=== PATIENT | male | born 1940 | race Caucasian/White ===

== ENCOUNTER → 2016-11-14 | Outpatient (CLI) | payer OTHER, MEDICARE ==
[~2016-11-14] MED LIST: ACET-1138 PO; ALBU1AER9 INH; ANSHCCR RE; ASPI81TA28 PO; ATOR-24 PO; CLB200 PO; ISOS30TA3 PO; LISI-461 PO; LISI-725 PO; METO1TAB69 PO; MULT-610 PO; NTRGSL/4 UT; ONDA8TAB6 PO; REGADENOSON 0.4 MG/5 ML SYR ONE; RXC5 PO; SNK PO; TAMS0.4C38 PO; TRAM-10 PO; TRMO2580 TOP
--- NOTE | 2016-11-15 09:28 | MYOCARDIAL PERFUSION SCAN ---
DATE OF PROCEDURE: 11/14/2016. TIME: 9:06 a.m. ORDERING PHYSICIAN: Dr. Schmid. PRIMARY CARE PHYSICIAN: Dr. Esquivel. PROCEDURE: 1. Myocardial perfusion study performed in multiple views/images. 2. Lexiscan pharmacologic stress ECG. INDICATIONS: 1. Cardiomyopathy. 2. CAD. 3. Dyspnea with exertion. CONSENT: Informed written consent was obtained. ELECTROCARDIOGRAM AND VITALS: Baseline ECG demonstrated sinus bradycardia at 59 beats per minute. Anterolateral ST depression and T-wave inversion. Lexiscan ECG demonstrated no significant ST changes. No arrhythmia. There were occasional PVCs. No chest pain reported. Resting blood pressure was 147/80 mmHg. This was also the maximum blood pressure. Maximum heart rate was 82 beats per minute representing 56% maximum predicted heart rate. PROCEDURAL DETAILS: For the stress portion of the study, Lexiscan 0.4 mg was intravenously administered over 10-15 seconds followed by saline flush. This was followed by 34 mCi of technetium-99m Cardiolite injected intravenously at 11:26 a.m. on 11/14/2016. Thirty minutes following the injection, imaging of the heart was performed in multiple projections. For the rest portion of the study 10.8 mCi of technetium-99m Cardiolite was injected intravenously at 9:45 a.m. On the same day 1 hour following the injection, imaging of the heart was performed in the same projections. FINDINGS: Rotating raw imaging demonstrated motion artifact, worse so in the rest images. Heart appeared dilated. There was no significant lung uptake. Myocardial perfusion demonstrated a large area of moderately reduced uptake in the anterior, anterolateral, and lateral bah from base to apex which appeared to be fixed in post-stress and rest imaging. There was a large area of moderately reduced uptake at the apex which was predominantly fixed with mild reversibility, suggesting mild demetrio-infarct ischemia. Visually, LV systolic function appeared to be moderately reduced. Calculated ejection fraction did not appear accurate as it was having difficulty recognizing the myocardial bah. WALL MOTION: Akinesis of the apex, distal septum, and distal inferior wall. There appeared to be dyskinesis of the mid septum. Otherwise, mild global hypokinesis. IMPRESSION: 1. Abnormal myocardial perfusion suggesting large left anterior descending infarct with only mild periinfarct ischemia at the apex. 2. No significant ischemic changes suggested. 3. Moderately reduced left ventricular systolic function visually. 4. Akinesis of the apex, distal septum, and distal inferior wall with dyskinesis of the mid septum. 5. No chest pain reported. 6. No arrhythmia. 7. Nondiagnostic Lexiscan ECG.
== END | disposition home or self-care (01) ==
LOC: C.NUCL 09:21
PROVIDERS: ATTEND Internal Medicine Cardiovascular Disease
DX: I25.10 Atherosclerotic heart disease of native coronary artery without angina pectoris (principal); I42.9 Cardiomyopathy, unspecified; R06.09 Other forms of dyspnea

== ENCOUNTER → 2016-11-23 | Outpatient (CLI) | payer OTHER, MEDICARE ==
[~2016-11-23] MED LIST changes: -REGADENOSON 0.4 MG/5 ML SYR ONE
[2016-11-23 13:46] LABS: BLOOD UREA NITROGEN 27 mg/dl (7-18); BUN/CREATININE RATIO 22.2 (10-20); CALCIUM 8.4 mg/dl (8.5-10.1); CARBON DIOXIDE 26 mmol/L (21-32); CHLORIDE 109 mmol/L (98-107); GLUCOSE 123 mg/dl (70-99); POTASSIUM 4.5 mmol/L (3.5-5.1); SODIUM 143 mmol/L (136-145)
== END | disposition home or self-care (01) ==
LOC: C.LABMFLN 07:32
PROVIDERS: ATTEND Internal Medicine Cardiovascular Disease
DX: I42.9 Cardiomyopathy, unspecified (principal)

== ENCOUNTER 2017-02-19 10:48 | Inpatient (IN) | payer OTHER, MEDICARE ==
[2017-02-01 13:03] VITALS: BMI 26.0
--- NOTE | 2017-02-01 13:48 | PAT Medication Instructions ---
Service Date Feb 01, 2017. Current Home Medication List Albuterol (Proair Hfa), 2 PUFFS INH Q 4 HRS PRN for NEEDED Aspirin (Aspirin Ec), 81 MG PO QAM Atorvastatin (Lipitor), 40 MG PO HS Hydrocortisone (Proctosol Hc), 2.5 % RE DAILY PRN for NEEDED. Lisinopril (Zestril), 20 MG PO QAM Lisinopril (Zestril), 10 MG PO QPM Metoprolol Succ (Toprol Xl) (Toprol-Xl ), 100 MG PO QAM Multiple Vitamins W/ Minerals (Centrum Adults), 1 TAB PO QAM Nitroglycerin (Nitrostat), 0.4 MG UT PRN PRN for FOR CHEST PAIN. Tamsulosin Hcl (Flomax), 0.4 MG PO DAILY PRN for 1/2 HR AFTER EVENING MEAL. Tramadol (Ultram), 50 MG PO Q4H PRN for Pain Triamcinolone Acetonide (Topic (Triamcinolone Acet 0.025%), 1 APPLN TOP BID PRN for prn Medication Instructions For Your Scheduled Surgery - Continue as directed: Nitroglycerin (Nitrostat), 0.4 MG UT PRN PRN for FOR CHEST PAIN. - Hold the following medications 24 hours prior to surgery: Lisinopril (Zestril), 10 MG PO QPM Lisinopril (Zestril), 20 MG PO QAM Hydrocortisone (Proctosol Hc), 2.5 % RE DAILY PRN for NEEDED. Triamcinolone Acetonide (Topic (Triamcinolone Acet 0.025%), 1 APPLN TOP BID PRN for prn - Hold the following medications the morning of surgery: Multiple Vitamins W/ Minerals (Centrum Adults), 1 TAB PO QAM - Take the following medications the morning of surgery with a sip of water OTHERWISE NOTHING TO EAT OR DRINK AFTER MIDNIGHT: Aspirin (Aspirin Ec), 81 MG PO QAM Metoprolol Succ (Toprol Xl) (Toprol-Xl ), 100 MG PO QAM Tramadol (Ultram), 50 MG PO Q4H PRN for Pain (may take if needed up to 4 hours prior to surgery) Albuterol (Proair Hfa), 2 PUFFS INH Q 4 HRS PRN for NEEDED (use if needed; BRING TO HOSPITAL) - Take the following medications as scheduled the night before surgery: Atorvastatin (Lipitor), 40 MG PO HS Tramadol (Ultram), 50 MG PO Q4H PRN for Pain Albuterol (Proair Hfa), 2 PUFFS INH Q 4 HRS PRN for NEEDED Tamsulosin Hcl (Flomax), 0.4 MG PO DAILY PRN for 1/2 HR AFTER EVENING MEAL. If you have any questions please call us at [phone] or [phone] or [phone]
--- NOTE | 2017-02-01 14:08 | DIAGNOSTIC IMAGING REPORT ---
CHEST PREADMISSION(PA/LAT) CLINICAL HISTORY: PAT preoperative evaluation COMPARISON STUDY: No previous studies for comparison. FINDINGS: Prior median sternotomy. Lungs are clear. Diaphragms smooth. IMPRESSION: No acute process. Electronically signed by: Kendall Romero M.D. 02/01/2017 2:05 PM Dictated Date/Time: 02/01/2017 2:05 PM
[2017-02-01 14:16] LABS: BASO % 0.3 %; BASO ABS # 0.02 K/uL (0-0.2); COMPLETE YES; EOS % 4.9 %; HEMATOCRIT 40.6 % (42-52); IG% 0.1 %; LYMPH % 33.3 %; LYMPH ABS # 2.24 K/uL (1.2-3.4); MEAN CELL VOLUME 93.8 fL (80-100); MEAN CORPUSCULAR HEMOGLOBIN 31.2 pg (25-34); MEAN CORPUSCULAR HGB CONC 33.3 g/dl (32-36); MEAN PLATELET VOLUME 9.8 fL (7.4-10.4); MONO % 8.2 %; NEUT % 53.2 %; PLATELET COUNT 204 K/uL (130-400); RED BLOOD COUNT 4.33 M/uL (4.7-6.1); WHITE BLOOD COUNT 6.72 K/uL (4.8-10.8)
[2017-02-01 14:23] LABS: INR 1.1 (0.9-1.1); PROTHROMBIN TIME (PATIENT) 11.5 SECONDS (9.0-12.0)
[2017-02-01 14:59] LABS: URINE APPEARANCE CLEAR (CLEAR); URINE BILIRUBIN NEG (NEG); URINE COLOR YELLOW; URINE NITRITE NEG (NEG); UROBILINOGEN NEG (NEG); ZZUR CULT IF INDIC CLEAN CATCH NO
[2017-02-01 15:03] LABS: MANUAL MICROSCOPIC REQUIRED? NO; REVIEW REQ? NO
[2017-02-01 16:24] LABS: BUN/CREATININE RATIO 22.4 (10-20); POTASSIUM 4.3 mmol/L (3.5-5.1)
[2017-02-01 16:40] LABS: CALCIUM 8.5 mg/dl (8.5-10.1)
[2017-02-19] VITALS (8 sets, daily range): BP systolic 104–147; BP diastolic 47–81; PULSE 55–67; TEMP 36.3–36.6; O2SAT 98–100; Ht 175.3 cm; Wt 81.3 kg
[~2017-02-19] VITALS: Ht 175.3 cm; Wt 81.3 kg
[2017-02-19] MEDS: TRANEXAMIC ACID INJ 1,000 MG in SODIUM CHLORIDE 0.9% 100ML 100 ML IV SCH ×2 (06:30→12:58)
[~2017-02-19 10:48] MED LIST changes: -ACET-1138 PO; +ACETAMINOPHEN 500 MG TAB PO SCH; +ATROPINE SULFATE 0.1 MG/ML 5ML SYR IV PRN; +BUPIVACAINE 0.5 % 5 MG/1 ML PF 10ML VIAL ONE; +CEFAZOLIN 2000 MG/60 ML D5W 60 ML IV SCH; -CLB200 PO; +CeleBREX 200 MG CAP PO SCH; +DEXAMETHASONE 4 MG TAB PO SCH; +EpHEDrine SULFATE INJ 50 MG/ML AMP IV PRN; +FAMOTIDINE 20 MG TAB PO SCH; +FENTANYL CITRATE INJ 50 MCG/1 ML 2 ML VIAL IV PRN; +GABAPENTIN 300 MG CAP PO SCH; -ISOS30TA3 PO; +LACTATED RINGER'S 1000ML 1,000 ML IV SCH; +LACTATED RINGER'S 1000ML 500 ML IV ONE; +LACTATED RINGER'S 1000ML IV SCH; +METO100T44 PO; -METO1TAB69 PO; +METOCLOPRAMIDE HCL 10 MG TAB PO SCH; -ONDA8TAB6 PO; +ONDANSETRON INJ 2 MG/ML 2 ML VIAL IV PRN; +OXYCODONE HCL 10 MG TABCR (OXYCONTIN) PO SCH; +POLYMYXIN B SULFATE 100,000 UNITS in NSS 100ML IR SCH; -RXC5 PO; -SNK PO; +VANCOMYCIN INJ 400 MG in NSS 100ML IR SCH
--- NOTE | 2017-02-19 11:50 | History and Physical ---
History & Physical Date February 19, 2017. Chief Complaint LEFT HIP PAIN History of Present Illness The patient is a 76 year old male with complaints of Past Medical/Surgical History Patient has history of left hip pain x several months. He rates his pain a 8/10 at worst. He has pain with daily activities. He has limited standing and walking tolerance. Pain is worse with weight bearing. Patient has failed conservative treatment and is scheduled for direct anterior, left NOEL. Additional History Hepatic Disease: No Endocrine Disorder: No Kidney Disease: No Hypertension: No Heart Disease: Yes (history of [place] 2013) Bleeding Tendencies: No Infectious Diseases: No Allergies Coded Allergies: No Known Allergies (Unverified , 02/19/17) Home Medications Scheduled Aspirin (Aspirin Ec), 81 MG PO QAM Atorvastatin (Lipitor), 40 MG PO HS Lisinopril (Zestril), 20 MG PO QAM Lisinopril (Zestril), 10 MG PO QPM Metoprolol Succ (Toprol Xl) (Toprol-Xl ), 100 MG PO QAM Multiple Vitamins W/ Minerals (Centrum Adults), 1 TAB PO QAM Scheduled PRN Hydrocortisone (Proctosol Hc), 2.5 % RE DAILY PRN for NEEDED. Nitroglycerin (Nitrostat), 0.4 MG UT PRN PRN for FOR CHEST PAIN. Tamsulosin Hcl (Flomax), 0.4 MG PO DAILY PRN for 1/2 HR AFTER EVENING MEAL. Tramadol (Ultram), 50 MG PO Q4H PRN for Pain Triamcinolone Acetonide (Topic (Triamcinolone Acet 0.025%), 1 APPLN TOP BID PRN for prn Physical Examination Skin: warm/dry, no rash Eyes: normal inspection, EOMI, sclerae normal ENT: normal ENT inspection, pharynx normal Head: normocephalic, atraumatic Neck: supple, no adenopathy, trachea midline Respiratory/Chest: lungs clear, normal breath sounds, no respiratory distress Cardiovascular: regular rate, rhythm, no edema, no murmur Abdomen / GI: normal bowel sounds, non tender Back: normal inspection Extremities: normal inspection, + pertinent finding (ROM PAINFUL AND DECREASED. ANTALGIC GAIT. ) Neurologic/Psych: no motor/sensory deficits, alert, normal reflexes, oriented x 3 Diagnosis DJD LEFT HIP Plan of Treatment PATIENT WILL BE ADMITTED FOR A DIRECT ANTERIOR LEFT TOTAL HIP ARTHROPLASTY. WE WILL PLAN ON ASA FOR DVT PROPHYLAXIS.
[2017-02-19] MEDS ORDERED: LIDOCAINE HCL 2% 2 ML VIAL (20MG/ML) ONE (13:09)
[2017-02-19] MEDS ORDERED: PROPOFOL IV EMULSION 10 MG/ML 20 ML VIAL IV ONE (13:09)
[2017-02-19] MEDS ORDERED: MIDAZOLAM HCL 1 MG/ML 2ML VIAL ONE ×2 (13:10)
[2017-02-19] MEDS ORDERED: ORTHO JOINT ANESTHETIC ONE (13:48)
[2017-02-19] MEDS ORDERED: POVIDONE-IODINE OP SOLN 30 ML BTL ONE (13:48)
[2017-02-19] MEDS ORDERED: BACITRACIN 50000 UNIT VIAL ONE (13:49)
[2017-02-19] MEDS: ROPIVACAINE 5MG/ML 30 ML 150 MG, BUPIVACAINE/EPINEPHR 0.5% MPF 30 ML, KETOROLAC TROMETH... INFIL SCH ×14 (15:20→15:38)
[2017-02-19] MEDS ORDERED: EpHEDrine SULFATE 50MG/5ML SYR ONE (15:27)
--- NOTE | 2017-02-19 15:44 | DIAGNOSTIC IMAGING REPORT ---
LEFT HIP UNILATERAL 1 VIEW CLINICAL HISTORY: Left hip prosthesis. COMPARISON STUDY: None. FINDINGS: Fluoroscopy time was 9 seconds. A single fluoroscopic spot image. There is a left total hip arthroplasty. The hardware appears intact. No fracture or dislocation. IMPRESSION: Fluoroscopy provided for a left total hip arthroplasty. Electronically signed by: Prieto Peñaloza M.D. 02/19/2017 3:42 PM Dictated Date/Time: 02/19/2017 3:42 PM
--- NOTE | 2017-02-19 15:50 | [facility] Post Operative Brief Note ---
Immediate Operative Summary Operative Date February 19, 2017. Pre-Operative Diagnosis Degenerative Arthritis, Left Hip Post-Operative Diagnosis Same as preoperative Procedure(s) Performed Left Total Hip Arthroplasty, Direct Anterior Approach Surgeon Dr. Beni Elizondo Mathematical Statistician Surgeon(s) Franck Manuel PA-C Estimated Blood Loss 75ML Findings DJD Specimens A.) Left Femoral Head Complication(s) None Disposition Recovery Room / PACU
[2017-02-19] MEDS ORDERED: ZOLPIDEM TARTRATE 5 MG TAB PO PRN (16:00)
[2017-02-19] MEDS ORDERED: OXYCODONE HCL IR 5 MG TAB (IMMEDIATE RELEASE) PO PRN (16:00)
[2017-02-19] MEDS ORDERED: TRAMADOL HCL 50 MG TAB PO PRN (16:00)
[2017-02-19] MEDS ORDERED: METOCLOPRAMIDE HCL INJ 5 MG/ML 2 ML VIAL IV PRN (16:00)
[2017-02-19] MEDS ORDERED: TAMSULOSIN HCL 0.4 MG CAP PO PRN (16:00)
[2017-02-19] MEDS ORDERED: MoRPHine SULFATE 2 MG/ML CARP IV PRN (16:00)
[2017-02-19] MEDS ORDERED: ALUMINUM/MAGNESIUM/SIMETH (MAALOX MAX) 30 ML UDC PO PRN (16:00)
[2017-02-19] MEDS ORDERED: BISACODYL 10 MG SUPP PR PRN (16:00)
[2017-02-19] MEDS ORDERED: NITROGLYCERIN 0.4 MG SL PER TAB CHARGE UT PRN (16:00)
[2017-02-19] MEDS ORDERED: ONDANSETRON INJ 2 MG/ML 2 ML VIAL IV PRN (16:00)
[2017-02-19] MEDS ORDERED: DiphenhydrAMINE HCL 50 MG/ML VIAL IV PRN (16:00)
[2017-02-19] MEDS ORDERED: SOD PHOSPHATE/SOD BIPHOSPHATE ENEMA 132 ML BTL PR PRN (16:00)
[2017-02-19] MEDS ORDERED: MAGNESIUM HYDROXIDE SUSP 30 ML UDC PO PRN (16:00)
--- NOTE | 2017-02-19 16:32 | DIAGNOSTIC IMAGING REPORT ---
LEFT PELVIS/UNILATERAL HIP 1 VIEW CLINICAL HISTORY: IN PACU - A/P PELVIS and LATERAL HIP INCLUDING ALL OF IMPLANT COMPARISON: None. DISCUSSION: Status post total left hip replacement. Good contact between prosthetic and underlying bone. Surgical drains in position. Expected soft tissue postoperative change IMPRESSION: Anatomic alignment status post total left hip replacement Electronically signed by: Kendall Romero M.D. 02/19/2017 4:31 PM Dictated Date/Time: 02/19/2017 4:30 PM
--- NOTE | 2017-02-19 16:49 | Anesthesiology Progress Note ---
Anesthesia Post Op Note Date & Time February 19, 2017 at 16:50 Vital Signs Pain Intensity: 0 Vital Signs Past 12 Hours Date Time Temp Pulse Resp B/P Pulse Ox O2 Delivery O2 Flow Rate FiO2 02/19/17 16:35 58 22 120/63 98 Nasal Cannula 2 02/19/17 16:25 57 14 126/56 98 Nasal Cannula 2 02/19/17 16:15 57 12 114/62 98 Nasal Cannula 2 02/19/17 16:06 36.2 69 16 108/59 97 Nasal Cannula 2 02/19/17 11:09 36.5 61 16 147/81 98 Room Air Notes Mental Status: alert / awake / arousable, participated in evaluation Pt Amnestic to Procedure: Yes Nausea / Vomiting: adequately controlled Pain: adequately controlled Airway Patency, RR, SpO2: stable & adequate BP & HR: stable & adequate Hydration State: stable & adequate Neuraxial Anesthesia: was administered, sensory block is resolving Anesthetic Complications: no major complications apparent
[2017-02-19] MEDS: D5W AND 1/2NSS + 20MEQ KCL 1,000 ML IV SCH (18:17)
[2017-02-19] MEDS: KETOROLAC TROMETHAMINE 15 MG/ML VIAL IV. SCH (20:14)
[2017-02-19] MEDS ORDERED: LISINOPRIL 10 MG TAB PO SCH (21:00)
[2017-02-19] MEDS ORDERED: SENNA 8.6 MG TAB PO SCH (21:00)
[2017-02-19] MEDS ORDERED: ATORVASTATIN 20 MG TAB PO SCH (21:00)
[2017-02-19] MEDS: ASPIRIN 81 MG ECTAB PO SCH (21:30)
[2017-02-19] MEDS: ACETAMINOPHEN 500 MG TAB PO SCH (21:31)
[2017-02-19] MEDS ORDERED: TRANEXAMIC ACID INJ 1,000 MG in SODIUM CHLORIDE 0.9% 100ML 100 ML IV SCH (22:00)
[2017-02-19] MEDS: CEFAZOLIN IV 2,000 MG in DEXTROSE 5% 50ML 50 ML IV SCH (22:07)
--- NOTE | 2017-02-19 22:29 | OPERATIVE REPORT ---
DATE OF OPERATION: 02/19/2017 PREOPERATIVE DIAGNOSIS: Degenerative arthritis, left hip. POSTOPERATIVE DIAGNOSIS: Same. PROCEDURE: Left total hip replacement. SURGEON: Dr. Elizondo. HAND SPRAYER: INOCENTE Butterfield. ANESTHESIA: Spinal. BLOOD LOSS: 75 mL REPLACEMENT FLUIDS: 1500 mL crystalloid. DRAINS: Hemovac x2. CULTURES: None. COMPLICATIONS: None. COMPONENTS USED: Freire \T\ Nephew [employer]ology hip system: Acetabulum size 52, femur size 6 high offset, femoral head +4, 36 mm. NOTE: INOCENTE Butterfield, was present and assisted throughout due to the complicated nature of this case. He helped with preparation and setup, first assisted throughout, and personally closed the fascial, subcutaneous and skin layers, and applied the postoperative dressing. DESCRIPTION: Following satisfactory spinal, the patient was supine. The left hip was placed in the traction device, the right in the well leg coronel. Left hip was prepared with ChloraPrep and draped sterilely. Following a surgical timeout, an anterior approach to the interval between the sartorius and tensor muscles was completed, the circumflex femoral vessels were identified and ligated. An anterior capsulotomy was performed exposing the arthritic femoral neck and head. The femoral neck and head were trimmed and removed. The acetabular self-retraining retractor was placed. Acetabular reaming was completed, and under fluoroscopic guidance, a 52 shell was impacted and secured with a dome screw. After local anesthetic and irrigation, the cross-linked poly liner was placed. The femur was placed in a position of external rotation, extension and adduction. Femoral canal was prepared up to the size 6. A trial reduction with the +4 head showed voodoo of leg lengths, good fit and fill of the proximal canal, and leg lengths restored using anatomic landmarks. The hip was dislocated. The trial component was removed. The final implant was placed, and after irrigation, a Betadine soak was performed. After 5 minutes, the Betadine was irrigated. The capsule was closed with #1 Vicryl interrupted. Drain was placed. The fascia was closed with a running suture of #1 Vicryl, subcutaneous tissues with 2-0 Vicryl, and the skin with a running subcuticular stitch of 3-0 V-Loc. Dermabond and a dry dressing were applied. The patient was returned to his bed in stable condition. I attest to the content of the Intraoperative Record and any orders documented therein. Any exceptio ns are noted below.
[2017-02-20] MEDS: KETOROLAC TROMETHAMINE 15 MG/ML VIAL IV. SCH ×2 (02:21→08:44)
[2017-02-20] MEDS: D5W AND 1/2NSS + 20MEQ KCL 1,000 ML IV SCH ×2 (03:21→12:27)
[2017-02-20 03:54] VITALS: BP 106/58; PULSE 66; TEMP 36.7; O2SAT 96
[2017-02-20] MEDS: CEFAZOLIN IV 2,000 MG in DEXTROSE 5% 50ML 50 ML IV SCH (05:35)
[2017-02-20] MEDS: ACETAMINOPHEN 500 MG TAB PO SCH (05:36)
[2017-02-20 06:11] LABS: COMPLETE YES; HEMATOCRIT 34.9 % (42-52); IG% 0.2 %; LYMPH % 8.4 %; MEAN CELL VOLUME 91.4 fL (80-100); MEAN CORPUSCULAR HEMOGLOBIN 32.2 pg (25-34); MEAN CORPUSCULAR HGB CONC 35.2 g/dl (32-36); MEAN PLATELET VOLUME 9.4 fL (7.4-10.4); MONO % 6.6 %; NEUT % 84.8 %; PLATELET COUNT 178 K/uL (130-400); RED BLOOD COUNT 3.82 M/uL (4.7-6.1); WHITE BLOOD COUNT 15.54 K/uL (4.8-10.8)
[2017-02-20 06:42] LABS: BUN/CREATININE RATIO 18.1 (10-20); CALCIUM 8.1 mg/dl (8.5-10.1); CREATININE 1.4 mg/dl (0.60-1.40); POTASSIUM 4.5 mmol/L (3.5-5.1)
[2017-02-20 07:57] VITALS: BP 108/78; PULSE 65; TEMP 36.4; O2SAT 99
[2017-02-20 08:04] VITALS: O2SAT 99
--- NOTE | 2017-02-20 08:17 | Anesthesiology Progress Note ---
Anesthesia Post Op Note Date & Time February 20, 2017 at 08:16 Vital Signs Pain Intensity: 0.0 Vital Signs Past 12 Hours Date Time Temp Pulse Resp B/P Pulse Ox O2 Delivery O2 Flow Rate FiO2 02/20/17 08:04 99 Room Air 02/20/17 07:57 36.4 65 13 108/78 99 Room Air 02/20/17 07:35 Room Air 02/20/17 03:54 36.7 66 18 106/58 96 Room Air 02/20/17 00:25 Room Air 02/19/17 23:21 36.5 67 18 104/58 99 Nasal Cannula 2.0 Notes Mental Status: alert / awake / arousable, participated in evaluation Pt Amnestic to Procedure: Yes Nausea / Vomiting: adequately controlled Pain: adequately controlled Airway Patency, RR, SpO2: stable & adequate BP & HR: stable & adequate Hydration State: stable & adequate Neuraxial Anesthesia: sensory block resolved Anesthetic Complications: no major complications apparent
--- NOTE | 2017-02-20 08:21 | Orthopedic Progress Note ---
Orthopedic Progress Note Date of Service February 20, 2017. Subjective Post OP Day: 1 Reports: feeling well, Denies: SOB, calf pain, chest pain, light headedness, nausea / vomiting Objective calves soft nontender, N/V intact, hip located, dressing C/D/I, A&O x3, toes mobile, hemovac drainage (120/75cc per shift) Date Time Temp Pulse Resp B/P Pulse Ox O2 Delivery O2 Flow Rate FiO2 02/20/17 08:04 99 Room Air 02/20/17 07:57 36.4 65 13 108/78 99 Room Air 02/20/17 07:35 Room Air 02/20/17 03:54 36.7 66 18 106/58 96 Room Air 02/20/17 00:25 Room Air 02/19/17 23:21 36.5 67 18 104/58 99 Nasal Cannula 2.0 02/19/17 20:07 36.5 61 18 121/69 100 Nasal Cannula 2.0 02/19/17 19:15 36.4 57 18 116/77 100 Nasal Cannula 2.0 02/19/17 18:02 36.3 55 18 133/76 100 Nasal Cannula 2.0 02/19/17 17:30 36.4 57 16 130/77 99 Nasal Cannula 2.0 02/19/17 17:10 99 Nasal Cannula 2.0 02/19/17 17:09 99 Nasal Cannula 2.0 02/19/17 17:08 36.6 55 18 130/47 98 Nasal Cannula 2.0 02/19/17 16:55 51 19 130/61 97 Nasal Cannula 2 02/19/17 16:45 36.2 51 15 126/63 96 Nasal Cannula 2 02/19/17 16:35 58 22 120/63 98 Nasal Cannula 2 02/19/17 16:25 57 14 126/56 98 Nasal Cannula 2 02/19/17 16:15 57 12 114/62 98 Nasal Cannula 2 02/19/17 16:06 36.2 69 16 108/59 97 Nasal Cannula 2 02/19/17 11:09 36.5 61 16 147/81 98 Room Air Laboratory Results 24 Hours: Test 02/20/17 06:00 White Blood Count 15.54 K/uL Red Blood Count 3.82 M/uL Hemoglobin 12.3 g/dL Hematocrit 34.9 % Mean Corpuscular Volume 91.4 fL Mean Corpuscular Hemoglobin 32.2 pg Mean Corpuscular Hemoglobin Concent 35.2 g/dl Platelet Count 178 K/uL Mean Platelet Volume 9.4 fL Neutrophils (%) (Auto) 84.8 % Lymphocytes (%) (Auto) 8.4 % Monocytes (%) (Auto) 6.6 % Eosinophils (%) (Auto) 0.0 % Basophils (%) (Auto) 0.0 % Neutrophils # (Auto) 13.18 K/uL Lymphocytes # (Auto) 1.30 K/uL Monocytes # (Auto) 1.03 K/uL Eosinophils # (Auto) 0.00 K/uL Basophils # (Auto) 0.00 K/uL Assessment & Plan Assessment: POD#1 SP LEFT NOEL Inhouse Planning Pain Management: Celebrex, PO Tylenol, Oxy IR DVT Prophylaxis: TEDs, SCDs, ASA Discharge Planning Discharge Planning: home with home health
[2017-02-20] MEDS ORDERED: ASPI81TA28 PO (08:23)
[2017-02-20] MEDS ORDERED: ACET-1138 PO (08:23)
[2017-02-20] MEDS ORDERED: SNK PO (08:23)
[2017-02-20] MEDS ORDERED: CLB200 PO (08:23)
[2017-02-20] MEDS ORDERED: RXC5 PO (08:23)
[2017-02-20] MEDS ORDERED: ONDA8TAB6 PO (08:23)
--- NOTE | 2017-02-20 08:24 | Discharge Instructions ---
Discharge Instructions Date of Service February 20, 2017. Admission Reason for Admission: Left Hip Degenerative Arthritis Discharge Discharge Diagnosis / Problem: SP LEFT NOEL Discharge Goals Goal(s): Decrease discomfort, Improve function, Increase independence Activity Recommendations Activity Limitations: per Instructions/Follow-up section . Instructions / Follow-Up Instructions / Follow-Up ACTIVITY RECOMMENDATIONS: SELF CARE INSTRUCTIONS AFTER TOTAL HIP REPLACEMENT : Direct Anterior Approach Until the incision and soft tissues around your hip have healed, there is a possibility that the hip prosthesis could dislocate. A. Hip flexion ( Up & Down out of chair or steps ) may be difficult. This is normal. B. Numbness in front of the thigh is also normal for a few weeks. C. Use hand rails when walking on stairs. D. Wear low heeled shoes with non-slip soles. E. Be sure that your floors are free of things that could trip you - throw rugs , electrical cords, small objects. Avoid wet and waxed floors, especially with crutches and canes. F. Try to walk several times a day with rest periods between. G. Continue with all the exercises taught to you in the hospital. Again, make walking a part of your daily routine. SPECIAL CARE INSTRUCTIONS: VERY IMPORTANT TO READ AND REVIEW A. You may still be at risk for phlebitis and blood clots. 1. Wear surgical stockings (PATO hose) for 2 weeks after surgery to improve circulation and reduce swelling. 2. Take Aspirin 81mg twice daily for 4 weeks or as directed by your doctor. This is your blood thinner. 3. High risk patients may be prescribed a stronger blood thinner if necessary. 4. If you are on Coumadin normally, your family doctor/rail signal mechanic should monitor your blood work. Expect a phone call the day of or the day after bloodwork is drawn to adjust your dosage. B. You must take antibiotics before having dental work, bladder, bowel and other surgery. Your doctor will provide you with a permanent card to carry describing precautions. C. Call [facility] if you have a fever, redness or swelling around the incision, cloudy drainage from incision, or sudden increase in pain in your hip, not relieved by your regular pain medication. D. Please call the office at if you have any concerns or questions about your operation or recovery. * YOU MAY SHOWER, NO TUB BATHS UNTIL CLEARED BY YOUR DOCTOR. - Keep an extra close eye on the top portion of your incision. Be sure to keep clean & dry. * WEAR PATO HOSE 20 HOURS PER DAY FOR 2 WEEKS. * YOU MAY PROGRESS FROM A WALKER, TO A CANE, TO INDEPENDENT AT YOUR OWN PACE. * MOST PATIENTS WILL HAVE HOME NURSING FOR THERAPY. IF YOU DECIDE TO DO OUTPATIENT PHYSICAL THERAPY, PLEASE SCHEDULE THIS 3 TIMES PER WEEK. * DERMABOND Prineo- This is a mesh tape dressing that is covered with glue. It should remain in place until the incision is properly healed, usually 10-14 days. This dressing is designed to naturally slough off. You may trim the excess mesh tape as it peels off. Incision may be briefly wet in a shower. Dry immediately by blotting with a clean, dry towel. Do not bath or swim until instructed by your doctor. Do not scratch, rub, or pick at the dressing. Do not apply any topical ointments or lotions until dressing is completely removed and/or instructed by your doctor. There may be a small piece of suture material at one end of your incision. Do not pull or trim this. If it is bothersome or catching on clothing, you may cover it with a band-aid. FOLLOW UP VISIT: If appointment is not already scheduled: Please call [facility] to make a follow-up appointment for 2 weeks after your surgery at . Current Hospital Diet Patient's current hospital diet: Regular Diet Discharge Diet Recommended Diet: Regular Diet Procedures Procedures Performed: Left Total Hip Arthroplasty, Direct Anterior Approach Pending Studies Studies pending at discharge: no Medical Emergencies . Who to Call and When: Medical Emergencies: If at any time you feel your situation is an emergency, please call 911 immediately. . Non-Emergent Contact Non-Emergency issues call your: Surgeon . "Provider Documentation" section prepared by Roxane Pardo. . VTE Core Measure Inpt VTE Proph given/why not?: Other Anticoagulation, T.E.D. Espinoza, SCD's [place] Drug Monitoring Program Search Results: patient reviewed within database, no issues identified
[2017-02-20] MEDS: ASPIRIN 81 MG ECTAB PO SCH (08:44)
[2017-02-20] MEDS ORDERED: METOPROLOL SUCC 50MG EXT REL TAB PO SCH (09:00)
[2017-02-20] MEDS ORDERED: MULTIVITAMIN TAB PO SCH (09:00)
[2017-02-20] MEDS ORDERED: PANTOprazole SOD 40 MG TAB PO SCH (09:00)
[2017-02-20] MEDS ORDERED: LISINOPRIL 20 MG TAB PO SCH (09:00)
[2017-02-20 09:35] VITALS: BP 108/78; PULSE 65; TEMP 36.4; O2SAT 99
[2017-02-20 12:07] VITALS: BP 106/66; PULSE 60; TEMP 36.7; O2SAT 99
[2017-02-21] MEDS ORDERED: CeleBREX 200 MG CAP PO SCH (21:00)
--- NOTE | 2017-02-26 17:04 | DISCHARGE SUMMARY ---
DISCHARGE DIAGNOSIS: Degenerative joint disease, left hip. SECONDARY DIAGNOSES: Coronary artery disease status post [place] 2013, hypercholesterolemia, hypertension. CONSULTS: None. COMPLICATIONS: None. PROCEDURES: Left total hip arthroplasty performed by Dr. Magdy Elizondo on 02/19/2017. BRIEF HISTORY: As dictated in history and physical. HOSPITAL SUMMARY: The patient was admitted on the above date and had the above known surgery performed which he tolerated well. The patient was remaining stable and had no complaints by 02/20/2017. Dressings were intact. Hip was located. Neurovascular intact. Calves were soft, nontender. Vital signs were stable. He was afebrile. Hemoglobin was stable at 12.3 and he was progressing well with his physical therapy and it was felt he could be discharged to home with home health services. For further review, please see chart. LAB AND X-RAY DATA: As per chart. DISCHARGE INSTRUCTIONS: The patient was discharged to home in satisfactory condition on 02/20/2017. DIET: Regular. ACTIVITY: Follow NOEL instruction sheets and special care instructions as noted. Follow up with Dr. Magdy Elizondo in 2 weeks. The patient to call for appointment if one has not been made for you. DISCHARGE MEDICATIONS: Acetaminophen 1000 mg p.o. q. 8 hours, Celebrex 200 mg p.o. b.i.d., Zofran 8 mg p.o. q. 8 hours p.r.n., oxycodone 5-10 mg p.o. q. 4 hours p.r.n., senna 17.2 mg p.o. at bedtime, resume taking atorvastatin 40 mg p.o. at bedtime, proctosol p.r.n., lisinopril 20 mg p.o. q.a.m. and 10 mg p.o. q.p.m., metoprolol 100 mg p.o. q.a.m., multivitamin 1 tab p.o. q.a.m., Nitrostat 0.4 mg under tongue p.r.n. chest pain and Flomax 0.4 mg p.o. daily p.r.n. and tramadol 50 mg p.o. q. 4 hours p.r.n., triamcinolone topical b.i.d. p.r.n., aspirin 81 mg p.o. b.i.d. for 30 days and then resume once daily dosing.
== END 2017-02-20 13:20 | disposition home health service (06) | DRG 470 ==
LOC: ENRESERVTM → ENRESERVDT → C.ACU 10:48 → C.3E 12:56
PROVIDERS: ADMIT Orthopaedic Surgery; ATTEND Orthopaedic Surgery
PROC: 0SRB04A Replacement of Left Hip Joint with Ceramic on Polyethylene Synthetic Substitute, Uncemented, Open Approach (ICD-10-PCS; principal; 2017-02-19 13:00)
DX: M16.12 Unilateral primary osteoarthritis, left hip (principal); I38 Endocarditis, valve unspecified; J45.909 Unspecified asthma, uncomplicated; I25.10 Atherosclerotic heart disease of native coronary artery without angina pectoris; I25.2 Old myocardial infarction; I10 Essential (primary) hypertension; M54.9 Dorsalgia, unspecified; Z79.899 Other long term (current) drug therapy; Z79.82 Long term (current) use of aspirin; Z79.891 Long term (current) use of opiate analgesic; Z86.79 Personal history of other diseases of the circulatory system

== ENCOUNTER → 2017-03-13 | Outpatient (CLI) | payer OTHER, MEDICARE ==
[~2017-03-13] MED LIST changes: +ACET-1138 PO; -ACETAMINOPHEN 500 MG TAB PO SCH; -ALBU1AER9 INH; -ATROPINE SULFATE 0.1 MG/ML 5ML SYR IV PRN; -BUPIVACAINE 0.5 % 5 MG/1 ML PF 10ML VIAL ONE; -CEFAZOLIN 2000 MG/60 ML D5W 60 ML IV SCH; +CLB200 PO; -CeleBREX 200 MG CAP PO SCH; -DEXAMETHASONE 4 MG TAB PO SCH; -EpHEDrine SULFATE INJ 50 MG/ML AMP IV PRN; -FAMOTIDINE 20 MG TAB PO SCH; -FENTANYL CITRATE INJ 50 MCG/1 ML 2 ML VIAL IV PRN; -GABAPENTIN 300 MG CAP PO SCH; -LACTATED RINGER'S 1000ML 1,000 ML IV SCH; -LACTATED RINGER'S 1000ML 500 ML IV ONE; -LACTATED RINGER'S 1000ML IV SCH; -METOCLOPRAMIDE HCL 10 MG TAB PO SCH; +ONDA8TAB6 PO; -ONDANSETRON INJ 2 MG/ML 2 ML VIAL IV PRN; -OXYCODONE HCL 10 MG TABCR (OXYCONTIN) PO SCH; -POLYMYXIN B SULFATE 100,000 UNITS in NSS 100ML IR SCH; +RXC5 PO; +SNK PO; -VANCOMYCIN INJ 400 MG in NSS 100ML IR SCH
[2017-03-13 13:25] LABS: BASO % 0.3 %; BASO ABS # 0.02 K/uL (0-0.2); COMPLETE YES; EOS % 9.2 %; HEMATOCRIT 36.3 % (42-52); IG% 0.3 %; LYMPH % 24.3 %; LYMPH ABS # 1.69 K/uL (1.2-3.4); MEAN CELL VOLUME 94.5 fL (80-100); MEAN CORPUSCULAR HEMOGLOBIN 31.8 pg (25-34); MEAN CORPUSCULAR HGB CONC 33.6 g/dl (32-36); MEAN PLATELET VOLUME 9.3 fL (7.4-10.4); MONO % 8.9 %; PLATELET COUNT 300 K/uL (130-400); RED BLOOD COUNT 3.84 M/uL (4.7-6.1); WHITE BLOOD COUNT 6.95 K/uL (4.8-10.8)
[2017-03-13 13:45] LABS: CALCIUM 8.6 mg/dl (8.5-10.1)
[2017-03-13 13:50] LABS: BLOOD UREA NITROGEN 29 mg/dl (7-18); CARBON DIOXIDE 30 mmol/L (21-32); CHLORIDE 109 mmol/L (98-107); GLUCOSE 139 mg/dl (70-99); POTASSIUM 4.7 mmol/L (3.5-5.1); SODIUM 145 mmol/L (136-145)
== END | disposition home or self-care (01) ==
LOC: C.LABMFLN 10:12
PROVIDERS: ATTEND Family Medicine
DX: Z00.00 Encounter for general adult medical examination without abnormal findings (principal); I10 Essential (primary) hypertension; D64.9 Anemia, unspecified

== ENCOUNTER → 2017-06-11 | Outpatient (CLI) | payer OTHER, MEDICARE ==
[~2017-06-11] MED LIST changes: -METO100T44 PO; +METO1TAB69 PO
[2017-06-11 18:24] LABS: BLOOD UREA NITROGEN 32 mg/dl (7-18); BUN/CREATININE RATIO 21.3 (10-20); CALCIUM 8.7 mg/dl (8.5-10.1); CARBON DIOXIDE 30 mmol/L (21-32); CHLORIDE 108 mmol/L (98-107); GLUCOSE 98 mg/dl (70-99); POTASSIUM 4.3 mmol/L (3.5-5.1); SODIUM 143 mmol/L (136-145)
== END | disposition home or self-care (01) ==
LOC: C.LABMFLN 16:40
PROVIDERS: ATTEND Internal Medicine Cardiovascular Disease
DX: I42.9 Cardiomyopathy, unspecified (principal); I25.10 Atherosclerotic heart disease of native coronary artery without angina pectoris; R06.09 Other forms of dyspnea; I77.810 Thoracic aortic ectasia; I50.21 Acute systolic (congestive) heart failure; I35.9 Nonrheumatic aortic valve disorder, unspecified

== ENCOUNTER → 2017-06-21 | Outpatient (CLI) | payer OTHER, MEDICARE ==
[2017-06-21 18:03] LABS: BLOOD UREA NITROGEN 23 mg/dl (7-18); BUN/CREATININE RATIO 19.1 (10-20); CALCIUM 8.2 mg/dl (8.5-10.1); CARBON DIOXIDE 30 mmol/L (21-32); CHLORIDE 109 mmol/L (98-107); GLUCOSE 130 mg/dl (70-99); POTASSIUM 4.3 mmol/L (3.5-5.1); SODIUM 142 mmol/L (136-145)
== END | disposition home or self-care (01) ==
LOC: C.LABMFLN 13:31
PROVIDERS: ATTEND Internal Medicine Cardiovascular Disease
DX: I50.21 Acute systolic (congestive) heart failure (principal)

== ENCOUNTER → 2017-08-07 | Outpatient (CLI) | payer OTHER, MEDICARE ==
[2017-08-07 14:01] LABS: ALT/SGPT 24 U/L (12-78); BLOOD UREA NITROGEN 22 mg/dl (7-18); BUN/CREATININE RATIO 16.6 (10-20); CALCIUM 8.6 mg/dl (8.5-10.1); CARBON DIOXIDE 27 mmol/L (21-32); CHLORIDE 108 mmol/L (98-107); CHOLESTEROL 106 mg/dl (0-200); CREATININE 1.31 mg/dl (0.60-1.40); GLUCOSE 119 mg/dl (70-99); POTASSIUM 4.3 mmol/L (3.5-5.1); SODIUM 142 mmol/L (136-145); TRIGLYCERIDES 64 mg/dl (0-150); VERY LOW DENSITY LIPOPROT CALC 13 mg/dl
[2017-08-07 14:12] LABS: ALB/GLOB RATIO 1.1 (0.9-2); ALKALINE PHOSPHATASE 90 U/L (45-117); AST/SGOT 27 U/L (15-37); CHOLESTEROL/HDL RATIO 2.3; HDL CHOLESTEROL 47 mg/dl; LDL CHOLESTEROL CALCULATED 46 mg/dl
[2017-08-07 14:44] LABS: ESTIMATED AVERAGE GLUCOSE 140 mg/dl; HA1C FLAG Normal (Normal)
== END | disposition home or self-care (01) ==
LOC: C.LABMFLN 08:08
PROVIDERS: ATTEND Family Medicine
DX: E78.00 Pure hypercholesterolemia, unspecified (principal); I42.9 Cardiomyopathy, unspecified; I10 Essential (primary) hypertension; R73.03 Prediabetes; Z12.5 Encounter for screening for malignant neoplasm of prostate; R53.83 Other fatigue

== ENCOUNTER → 2018-02-06 | Outpatient (CLI) | payer OTHER, MEDICARE ==
[~2018-02-06] MED LIST changes: +METO100T44 PO; -METO1TAB69 PO; -ONDA8TAB6 PO
[2018-02-06 13:35] LABS: HEMOGLOBIN A1C 6.4 % (4.5-5.6)
[2018-02-06 13:51] LABS: ALBUMIN 3.3 gm/dl (3.4-5.0); ALT/SGPT 32 U/L (12-78); AST/SGOT 26 U/L (15-37); BLOOD UREA NITROGEN 24 mg/dl (7-18); CALCIUM 8.9 mg/dl (8.5-10.1); CARBON DIOXIDE 28 mmol/L (21-32); CREATININE 1.27 mg/dl (0.60-1.40); GLUCOSE 131 mg/dl (70-99); POTASSIUM 4.2 mmol/L (3.5-5.1); SODIUM 140 mmol/L (136-145)
[2018-02-06 13:53] LABS: ALKALINE PHOSPHATASE 82 U/L (45-117); CHOLESTEROL 111 mg/dl (0-200); LDL CHOLESTEROL CALCULATED 53 mg/dl; TOTAL PROTEIN 6.5 gm/dl (6.4-8.2)
== END | disposition home or self-care (01) ==
LOC: C.LABMFLN 07:33
PROVIDERS: ATTEND Family Medicine
DX: E78.00 Pure hypercholesterolemia, unspecified (principal); R73.03 Prediabetes; I10 Essential (primary) hypertension

== ENCOUNTER → 2018-06-04 | Outpatient (CLI) | payer OTHER, MEDICARE ==
[2018-06-04 18:19] LABS: BASO % 0.1 %; BASO ABS # 0.01 K/uL (0-0.2); EOS ABS # 0.35 K/uL (0-0.5); HEMATOCRIT 38.4 % (42-52); HEMOGLOBIN 12.4 g/dL (14.0-18.0); IG# 0.01 K/uL (0.00-0.02); LYMPH % 26.4 %; LYMPH ABS # 1.86 K/uL (1.2-3.4); MEAN CELL VOLUME 97.2 fL (80-100); MEAN CORPUSCULAR HEMOGLOBIN 31.4 pg (25-34); MEAN CORPUSCULAR HGB CONC 32.3 g/dl (32-36); MEAN PLATELET VOLUME 10.4 fL (7.4-10.4); MONO % 13.2 %; MONO ABS # 0.93 K/uL (0.11-0.59); NEUT % 55.2 %; NEUT ABS # 3.88 K/uL (1.4-6.5); PLATELET COUNT 267 K/uL (130-400); RED CELL DISTRIBUTION WIDTH CV 14.1 % (11.5-14.5); RED CELL DISTRIBUTION WIDTH SD 50.3 fL (36.4-46.3); WHITE BLOOD COUNT 7.04 K/uL (4.8-10.8)
[2018-06-04 18:41] LABS: BLOOD UREA NITROGEN 25 mg/dl (7-18); CALCIUM 8.7 mg/dl (8.5-10.1); CARBON DIOXIDE 29 mmol/L (21-32); CREATININE 1.34 mg/dl (0.60-1.40); GLUCOSE 101 mg/dl (70-99); POTASSIUM 4.4 mmol/L (3.5-5.1); SODIUM 140 mmol/L (136-145)
== END | disposition home or self-care (01) ==
LOC: C.LABMFLN 11:56
PROVIDERS: ATTEND Family Medicine
DX: I95.9 Hypotension, unspecified (principal)

== ENCOUNTER 2023-03-15 15:30 | Inpatient (IN) ==
--- NOTE | 2023-03-15 16:54 | XRay Report ---
XR chest 1V portable CLINICAL HISTORY: CHEST PAIN TECHNIQUE: Single frontal radiograph of the chest was obtained. Comparison: Comparison is made to chest radiograph 02/01/2017 FINDINGS: Median sternotomy wires are unchanged with numerous fractured wires. Pacemaker defibrillator is seen. Cardiomegaly is noted. The lungs are clear. No evidence of pleural effusion or pneumothorax. IMPRESSION: No acute chest disease. Cardiomegaly is noted. ACT 112: Negative or not required by law. Electronically signed by: Isma Sal M.D. 03/15/2023 4:53 PM
[2023-03-15 16:59] LABS: Basophils # (auto) 0.02 K/uL (0-0.2); Basophils % (auto) 0.3 %; Eosinophils # (auto) 0.23 K/uL (0-0.50); Hematocrit (blood only) 43.5 % (42.0-52.0); Hemoglobin 14.9 g/dl (14.0-18.0); Immature Granulocytes # (auto) 0.02 K/uL (0.01-0.20); Immature Granulocytes % (auto) 0.3 %; Lymphocytes # (auto) 2.21 K/uL (1.2-3.4); Lymphocytes % (auto) 28.6 %; Mean Corpuscular Hemoglobin 32.8 pg (25.0-34.0); Mean Corpuscular Hgb Conc 34.3 g/dL (32.0-36.0); Mean Corpuscular Volume 95.8 fL (80.0-100.0); Mean Platelet Volume 9.9 fL (9.4-12.4); Monocytes # (auto) 0.63 K/uL (0.11-0.59); Monocytes % (auto) 8.2 %; Neutrophils # (auto) 4.61 K/uL (1.40-6.50); Neutrophils % (auto) 59.6 %; Platelet Count 249 K/uL (130-400); RDW Coefficient of Variation 13.6 % (11.5-14.5); RDW Standard Deviation 48.4 fL (36.4-46.3); Red Blood Count 4.54 M/uL (4.70-6.10); White Blood Count 7.72 K/ul (4.8-10.8)
[2023-03-15 17:31] LABS: Albumin Level 4.3 gm/dl (3.4-5.0); Bilirubin,Total 0.7 mg/dl (0.2-1.0); Calcium 9.7 mg/dl (8.6-10.3); Magnesium 1.8 mg/dl (1.7-2.4); Potassium 4.7 mmol/L (3.5-5.1)
--- NOTE | 2023-03-15 17:36 | Electrocardiogram Report ---
Test Reason : Blood Pressure : / mmHG Vent. Rate : 074 BPM Atrial Rate : 076 BPM P-R Int : 000 ms QRS Dur : 186 ms QT Int : 476 ms P-R-T Axes : 000 -88 092 degrees QTc Int : 528 ms Ventricular-paced rhythm with occasional Premature ventricular complexes Abnormal ECG No previous ECGs available Confirmed by Donny Vieyra ([id number]) on 03/15/2023 5:35:49 PM Referred By: Confirmed By:Donny Vieyra
[2023-03-15 17:37] LABS: Albumin Globulin Ratio 1.4 (0.9-2); BUN Creatinine Ratio 20.5 (10-20); Est GFR (African American) 49.8 ml/min; Globulin 3.1 gm/dl (2.5-4.0); Total Protein 7.4 gm/dl (6.0-8.3)
[2023-03-15 17:38] LABS: INR 1.1 (0.9-1.1); Partial Thromboplastin Time 28.7 Seconds (21.0-31.0); Prothrombin Time 11.9 Seconds (9.0-12.0)
[2023-03-15 17:46] LABS: Troponin I High Sensitivity 291.7 pg/ml (0-20)
--- NOTE | 2023-03-15 17:54 | Emergency Department Note ---
Impression & Plan CHF (congestive heart failure), Elevated troponin, Presence of combination internal cardiac defibrillator (ICD) and pacemaker, Atrial fibrillation, Chronic anticoagulation, CKD (chronic kidney disease) ED Provider Note NAME: AVEL HUBBARD AGE: 82 SEX: M ARRIVES VIA: Walk-In INFORMANT: Patient ED PROVIDER(S): Sourav Pierce MD CHIEF COMPLAINT: SOB, referred. PLAN: Disposition: Admit MEDICAL DECISION MAKING: The patient is a pleasant 82-year-old gentleman with a past medical history of known systolic heart failure status post AICD with EF of 35-40% who presents to the emergency department referred by his PCPs office for evaluation of increased fluid retention related to the patient CHF over the past couple of weeks where he had outpatient testing today which demonstrated elevated high-sensitivity troponin of 100. The patient admits that he has not been taking his Lasix with any regularity recently as he was told he could use his Lasix as needed by his cardiology office. He reports a week ago he first noticed swelling in his ankles and began taking his Lasix as it was previously prescribed every other day and so estimates he may have had 4 doses but given no improvement in that time saw his primary care doctor today and plan was to begin daily Lasix at a double dose of 40 mg daily but when his outpatient blood work demonstrated elevated troponin was referred to emergency department for IV for evaluation. The patient reports having an episode a week or more ago of an hour of right- sided chest pressure that was not associated with exertion or rest and would occur intermittently without any clear pattern but this has not recurred since then. He otherwise denies any palpitations, lightheadedness. He reports he has been having increasing difficulty sleeping as he is unable to lie flat. He denies any fevers, chills, cough, congestion, GI or symptoms. On arrival the patient is no acute distress, afebrile stable vital signs. He appears hypervolemic with 1+ bilateral lower extremity pitting edema. He has diminished breath sounds at the bases and lungs are otherwise clear. EKG demonstrates a ventricular paced rhythm without overt acute ischemia. Chest x-ray negative for acute cardiopulmonary process though with suspected venous congestion per my review. Interrogation of AICD without high risk arrhythmia. No treated episodes. Reviewed with [address] lab technician and patient does appear to have a new recent persistent underlying Afib over the past month. WBC, H/H and platelets within normal limits. Chemistry without metabolic acidosis. Creatinine 1.5, similar to prior range values in setting of CKD. High-sensitivity troponin 291 increased from 110 approximately 7 hours prior. COVID-19 RNA, JEANIE test was negative. Given the patient's symptoms of increased fluid retention in setting of his CHF with uptrending troponin they did agree with plan for admission for further management. Suspect elevated troponin likely related to the patient's hypervolemia in the setting of systolic heart failure. Triage Nursing notes reviewed and agree them. Prior/outside medical records reviewed Vital Signs: reviewed Differential diagnosis: Reactive airway disease, pneumonia, pneumothorax, COPD, CHF, infections, cardiac ischemia, pulmonary embolism, musculoskeletal, gastrointestinal, as well as other pathologies. ER treatment provided: See below. Diagnostics interpreted by me: ECG: Ventricular paced rhythm, 74 bpm, occasional PVCs, no overt acute ischemia. Cardiac Monitoring: An order for continuous cardiac monitoring was placed and demonstrated Ventricular paced rhythm, 74 bpm, occasional PVCs. Laboratory studies: See below Imaging studies: See below Consultation(s): Case was d/w Dr. Kimball, [facility] hospitalist who will evaluate the patient for admission. HPI: The patient is a pleasant 82-year-old gentleman with a past medical history of known systolic heart failure status post AICD with EF of 35-40% who presents to the emergency department referred by his PCPs office for evaluation of increased fluid retention related to the patient CHF over the past couple of weeks where he had outpatient testing today which demonstrated elevated high- sensitivity troponin of 100. The patient admits that he has not been taking his Lasix with any regularity recently as he was told he could use his Lasix as needed by his cardiology office. He reports a week ago he first noticed swelling in his ankles and began taking his Lasix as it was previously prescribed every other day and so estimates he may have had 4 doses but given no improvement in that time saw his primary care doctor today and plan was to begin daily Lasix at a double dose of 40 mg daily but when his outpatient blood work demonstrated elevated troponin was referred to emergency department for IV for evaluation. The patient reports having an episode a week or more ago of an hour of right- sided chest pressure that was not associated with exertion or rest and would occur intermittently without any clear pattern but this has not recurred since then. He otherwise denies any palpitations, lightheadedness. He reports he has been having increasing difficulty sleeping as he is unable to lie flat. He denies any fevers, chills, cough, congestion, GI or symptoms. ROS: See above HPI for pertinent positives & negatives. A total of 10 systems reviewed and were otherwise negative. VITALS:See Below PHYSICAL EXAMINATION: GENERAL: Awake, alert, well-appearing, in no distress HENT: Normocephalic, atraumatic. Oropharynx unremarkable. EYES: Normal conjunctiva. Sclera non-icteric. NECK: Supple. No nuchal rigidity. FROM. Mild JVD. RESPIRATORY: Clear to auscultation. CARDIAC: Regular rate, normal rhythm. Extremities warm and well perfused. Pulses equal. ABDOMEN: Soft, non-distended. No tenderness to palpation. No rebound or guarding. No masses. RECTAL: Deferred. MUSCULOSKELETAL: Chest examination reveals no tenderness. The back is symmetrical on inspection without obvious abnormality. There is no CVA tenderness to palpation. No joint edema. LOWER EXTREMITIES: Calves are equal size bilaterally and non-tender. 1+ BLE pitting edema. No discoloration. NEURO: Normal sensorium. No sensory or motor deficits noted. SKIN: No rash or jaundice noted. Sourav Pierce MD Past Med/Surg History Medical History Acute on chronic diastolic CHF (congestive heart failure) Angina at rest Aortic valve disorder Atrial fibrillation Benign essential hypertension Bronchospasm CAD (coronary atherosclerotic disease) CAD in [place] artery Cardiomyopathy Cataract Cataract Chronic anticoagulation Chronic systolic CHF (congestive heart failure) Close exposure to 2018- Community acquired pneumonia Controlled type 2 diabetes mellitus Cough Dilated aortic root GERD without esophagitis Hip pain, right History of recurrent deep vein thrombosis (DVT) Hypercholesterolemia Hypothyroidism Ingrown toenail of left foot Knee pain, right Leg length difference, acquired Mass of lower lobe of left lung Narcotic drug use Osteoarthritis of right knee Presence of combination internal cardiac defibrillator (ICD) and pacemaker [employer] 06/2020 Right leg DVT Tachyarrhythmia Travel-related illness Ventricular tachycardia Surgical History History of abdominal surgery A KID History of appendectomy History of cataract surgery BILATERAL History of hernia repair 2010? History of knee replacement LEFT History of left hip replacement S/P CABG x 3 S/P total knee arthroplasty 11/17/19 Dr. Austin Hartmann R TK with quad tendon rupture Family History Father Alcoholism Denies family history of Ovarian cancer Prostate cancer Myocardial infarction Breast cancer Colorectal cancer Social History Smoking Status: Never smoker Second Hand Exposure: No; Hx Alcohol Use: No Hx Substance Use: No Preferred Language: Ecuadorean Communication Ability: Effective Visual Impairment: No Limitations Hearing Ability: Use of Hearing Aid Bracer Required: No Beliefs That Will Affect Care: None marital status: Current Living Situation: Spouse current occupational status: retired Other Information That Helps Us Care for You: No Feels Safe at Home: Yes Safety Concerns: Feels Safe At This Time Childhood Exposure to Second-Hand Smoke: Yes (father) Diet: low carbohydrate and low salt caffeine: Yes (soda 1-2/wk) during the past year weight has: remained stable Dental Care, Regularly: Yes Physical Activity Frequency: Daily Seatbelt Use: always Sunscreen Use: Yes (sometimes - at the beach) Do you think of yourself as: straight/heterosexual Assistive Devices: Cane, Glasses and Hearing Aid - Bilateral Allergies Allergies Allergy/AdvReac Type Severity Reaction Status Date / Time No Known Drug Allergies Allergy Verified 03/15/23 07:51 Home Meds Home Medications Medication Instructions Recorded Confirmed acetaminophen 325 mg tablet 650 mg PO Q6H PRN PAIN/FEVER 03/04/20 03/15/23 amoxicillin 500 mg capsule 500 mg PO .COMPLEX 03/04/20 03/15/23 fluticasone 113 mcg-salmeterol 14 1 inh inhalation BID PRN SOB 03/29/21 03/15/23 mcg/actuation breath activated powdr furosemide 20 mg tablet 20 mg PO DAILY PRN edema, wt gain, 02/07/22 03/15/23 shortness of breath Previous Rx's Medication Instructions Recorded aspirin 81 mg tablet,delayed 81 mg PO DAILY #90 tabs 04/15/19 release [id number] acid 0.4 1 tab PO DAILY #90 tabs 04/15/19 mg-lycopene 300 mcg-lutein 250 mcg tablet (Centrum Silver) apixaban 5 mg tablet (Eliquis) 5 mg PO BID #180 tabs 04/25/22 sacubitril 97 mg-valsartan 103 mg 1 tab PO BID #180 tabs 04/25/22 tablet (Entresto) metoprolol succinate 200 mg 200 mg PO DAILY #30 tabs 06/02/22 tablet,extended release 24 hr albuterol sulfate 90 mcg/actuation 2 puff inhalation Q4H PRN 07/17/22 aerosol inhaler shortness of breath or wheezing #18 grams spironolactone 25 mg tablet 12.5 mg PO DAILY #45 tabs 08/01/22 nitroglycerin 0.4 mg sublingual 0.4 mg sublingual ONCE PRN chest 08/02/22 tablet pain #25 tabs metformin 500 mg tablet 500 mg PO BID #180 tabs 10/04/22 omeprazole 20 mg capsule,delayed 20 mg PO DAILY #90 caps 10/04/22 release fexofenadine 180 mg tablet 180 mg PO DAILY #30 tabs 11/06/22 fluticasone propionate 50 2 spray intranasal DAILY #16 grams 11/06/22 mcg/actuation nasal spray,suspension (Flonase Allergy Relief) tramadol 50 mg tablet 50 mg PO Q8H PRN pain #90 tabs 11/20/22 atorvastatin 40 mg tablet 40 mg PO DAILY #90 tabs 12/29/22 levothyroxine 50 mcg tablet 50 mcg PO QAM #90 tabs 02/02/23 Results & Data (ED) Vital Signs Vital Signs - 24 hr 03/15/23 15:37 03/15/23 16:39 03/15/23 16:45 Temperature 36.9 C Temperature Source Temporal Artery Scan Pulse Rate 70 72 Pulse Rate [Apical] 60 Pulse Rate from SpO2 Sensor Pulse Rhythm [Apical] Regular Respiratory Rate 20 12 Respiratory Effort / Characteristics Non-Labored Spontaneous Respiratory Depth Normal Respiratory Pattern Regular Blood Pressure 109/71 Blood Pressure [Left Arm] 128/80 Blood Pressure Mean 83 Blood Pressure Mean [Left Arm] 96 Pulse Oximetry 97 94 Oxygen Delivery Method Room Air Room Air Sepsis Recent Fever Within 48 Hours No Sepsis New/Unexplained Change in Mental Status N/A Sepsis Action Taken by Nursing No Action Required 03/15/23 17:00 03/15/23 19:00 Temperature Temperature Source Pulse Rate 63 Pulse Rate [Apical] 54 L Pulse Rate from SpO2 Sensor 70 Pulse Rhythm [Apical] Respiratory Rate 13 23 Respiratory Effort / Characteristics Non-Labored Spontaneous Respiratory Depth Normal Respiratory Pattern Blood Pressure 121/71 Blood Pressure [Left Arm] 144/80 H Blood Pressure Mean 87 Blood Pressure Mean [Left Arm] 101 Pulse Oximetry 94 96 Oxygen Delivery Method Room Air Sepsis Recent Fever Within 48 Hours Sepsis New/Unexplained Change in Mental Status Sepsis Action Taken by Nursing Laboratory Data Attestation: I reviewed the patient's lab results. 03/15/23 16:25 03/15/23 16:25 Lab Results 03/15/23 03/15/23 03/15/23 Range/Units 16:25 16:25 16:25 WBC 7.72 (4.8-10.8) K/ul RBC 4.54 L (4.70-6.10) M/uL Hgb 14.9 (14.0-18.0) g/dl Hct 43.5 (42.0-52.0) % MCV 95.8 (80.0-100.0) fL MCH 32.8 (25.0-34.0) pg MCHC 34.3 (32.0-36.0) g/dL RDW Std Deviation 48.4 H (36.4-46.3) fL RDW Coeff of Trini 13.6 (11.5-14.5) % Plt Count 249 (130-400) K/uL MPV 9.9 (9.4-12.4) fL Immature Gran % (Auto) 0.3 % Neut % (Auto) 59.6 % Lymph % (Auto) 28.6 % [place] % (Auto) 8.2 % Eos % (Auto) 3.0 % Baso % (Auto) 0.3 % Neut # (Auto) 4.61 (1.40-6.50) K/uL Lymph # (Auto) 2.21 (1.2-3.4) K/uL [place] # (Auto) 0.63 H (0.11-0.59) K/uL Eos # (Auto) 0.23 (0-0.50) K/uL Baso # (Auto) 0.02 (0-0.2) K/uL Immature Gran # (Auto) 0.02 (0.01-0.20) K/uL PT 11.9 (9.0-12.0) Seconds INR 1.1 (0.9-1.1) APTT 28.7 (21.0-31.0) Seconds PTT Ratio 1.0 Sodium 141 (136-145) mmol/L Potassium 4.7 (3.5-5.1) mmol/L Chloride 103 (98-107) mmol/L Carbon Dioxide 31 (21-32) mmol/L Anion Gap 7 (3-11) BUN 31 H (6-23) mg/dl Creatinine 1.51 H (0.6-1.4) mg/dl Est Cr Clr Drug Dosing 39.0 ml/min Est GFR ( Amer) 49.8 ml/min Est GFR (Non-Af Amer) 43.0 ml/min BUN/Creatinine Ratio 20.5 H (10-20) Glucose 99 (70-99(Fasting)) mg/dl Calcium 9.7 (8.6-10.3) mg/dl Magnesium 1.8 (1.7-2.4) mg/dl Total Bilirubin 0.7 (0.2-1.0) mg/dl AST 21 (13-39) U/L ALT 17 (7-52) U/L Alkaline Phosphatase 81 (34-104) U/L Troponin I High Sens 291.7 H* D (0-20) pg/ml Total Protein 7.4 (6.0-8.3) gm/dl Albumin 4.3 (3.4-5.0) gm/dl Globulin 3.1 (2.5-4.0) gm/dl Albumin/Globulin Ratio 1.4 (0.9-2) SARS-CoV-2, RNA, NAAT (NEGATIVE) 03/15/23 03/15/23 Range/Units 18:12 19:34 WBC (4.8-10.8) K/ul RBC (4.70-6.10) M/uL Hgb (14.0-18.0) g/dl Hct (42.0-52.0) % MCV (80.0-100.0) fL MCH (25.0-34.0) pg MCHC (32.0-36.0) g/dL RDW Std Deviation (36.4-46.3) fL RDW Coeff of Trini (11.5-14.5) % Plt Count (130-400) K/uL MPV (9.4-12.4) fL Immature Gran % (Auto) % Neut % (Auto) % Lymph % (Auto) % [place] % (Auto) % Eos % (Auto) % Baso % (Auto) % Neut # (Auto) (1.40-6.50) K/uL Lymph # (Auto) (1.2-3.4) K/uL [place] # (Auto) (0.11-0.59) K/uL Eos # (Auto) (0-0.50) K/uL Baso # (Auto) (0-0.2) K/uL Immature Gran # (Auto) (0.01-0.20) K/uL PT (9.0-12.0) Seconds INR (0.9-1.1) APTT (21.0-31.0) Seconds PTT Ratio Sodium (136-145) mmol/L Potassium (3.5-5.1) mmol/L Chloride (98-107) mmol/L Carbon Dioxide (21-32) mmol/L Anion Gap (3-11) BUN (6-23) mg/dl Creatinine (0.6-1.4) mg/dl Est Cr Clr Drug Dosing ml/min Est GFR ( Amer) ml/min Est GFR (Non-Af Amer) ml/min BUN/Creatinine Ratio (10-20) Glucose (70-99(Fasting)) mg/dl Calcium (8.6-10.3) mg/dl Magnesium (1.7-2.4) mg/dl Total Bilirubin (0.2-1.0) mg/dl AST (13-39) U/L ALT (7-52) U/L Alkaline Phosphatase (34-104) U/L Troponin I High Sens 344.2 H* (0-20) pg/ml Total Protein (6.0-8.3) gm/dl Albumin (3.4-5.0) gm/dl Globulin (2.5-4.0) gm/dl Albumin/Globulin Ratio (0.9-2) SARS-CoV-2, RNA, NAAT NEGATIVE (NEGATIVE) Administered Medications Heparin Sodium/Dextrose (Heparin Sodium/Dextrose) 25,000 units in 500 mls @ 27 mls/hr IV .[id number] [facility]; Protocol Stop: 04/14/23 21:44 Last Admin: 03/15/23 22:10 Dose: 1,350 units/hr, 27 mls/hr Documented By: JOHN Co-signed By: ORTEGA Insulin Aspart (Insulin Aspart Per Unit Charge) 0 units SC ACHS VERONICA Stop: 04/14/23 20:59 Last Admin: 03/15/23 22:11 Dose: 4 units Documented By: JOHN Co-signed By: ORTEGA Insulin Glargine (Lantus Per Unit Charge) 5 units SQ BID VERONICA Stop: 04/14/23 20:59 Last Admin: 03/15/23 22:10 Dose: 5 units Documented By: JOHN Co-signed By: ORTEGA Sacubitril/Valsartan (Valsartan/Sacubitril 103/97mg Tab) 1 tab PO BID VERONICA Stop: 04/14/23 21:17 Last Admin: 03/15/23 22:16 Dose: 1 tab Documented By: JOHN Discontinued Medications Furosemide (Furosemide Inj 20 Mg/2 Ml Vial) 20 mg IV NOW [facility] Stop: 03/15/23 17:58 Last Admin: 03/15/23 18:07 Dose: 20 mg Documented By: Imaging Data Radiologist's Impression: Chest X-Ray 03/15/23 16:44 XR chest 1V portable CLINICAL HISTORY: CHEST PAIN TECHNIQUE: Single frontal radiograph of the chest was obtained. Comparison: Comparison is made to chest radiograph 02/01/2017 FINDINGS: Median sternotomy wires are unchanged with numerous fractured wires. Pacemaker defibrillator is seen. Cardiomegaly is noted. The lungs are clear. No evidence of pleural effusion or pneumothorax. IMPRESSION: No acute chest disease. Cardiomegaly is noted. ACT 112: Negative or not required by law. Electronically signed by: Isma Sal M.D. 03/15/2023 4:53 PM Discharge Plan Visit Data Chief Complaint: Referred by Doctor Stated Complaint: DR DAVIS REFERRED, [facility] Provider: Sourav Pierce Discharge Problem: CHF (congestive heart failure), Elevated troponin, Presence of combination internal cardiac defibrillator (ICD) and pacemaker, Atrial fibrillation, Chronic anticoagulation, CKD (chronic kidney disease) Patient Disposition: Admitted As Inpatient Discharge Instructions Interventions: ED Discharge Assessment Last Done: 03/15/23 21:20 CHF (congestive heart failure) Qualifiers: Heart failure type: systolic Heart failure chronicity: acute on chronic Qualified Code(s): I50.23 - Acute on chronic systolic (congestive) heart failure
[2023-03-15] MEDS ORDERED: FUROSEMIDE INJ 20 MG/2 ML VIAL IV STA (17:57)
--- NOTE | 2023-03-15 19:35 | History & Physical Report ---
Date of Service March 15, 2023 Assessment & Plan (1) FLORES (dyspnea on exertion): Plan: -Admit to med/tele -The patient is currently stable -At this time the patient's progressive FLORES, LE swelling, orthopnea, and intermitted chest pain are most likely associated with an acute exacerbation of his HFrEF of 35-40%, but ACS cannot be ruled out at this time -Patient noted to have significant BL LE pitting edema, elevated BNP of 1067, and signs of interstitial pulm edema on CXR today -Has been on daily spironolactone but only had been using PO lasix prn at home, states that he is pretty good with avoid sodium but "does like his chips" -Patient had initial improvement in LE edema earlier in the week when taking prn lasix -No acute ST segment or T-wave inversions on ECG, patient has a hard time comparing his recent chest discomfort to his previous CABG -Will have pacemaker/ICD interrogated for further evaluation to rule out possible pacing/ICD shocks causing his discomfort -Initial high sen trop this am around 0845 was 110, first high sen trop in the ED was 291 --> 344 on 2 hour repeat -S/P 20 mg IV lasix in the ED with good response thus far, will continue with 20 mg IV lasix BID -Monitor Intake and output q6h 5 -Continue to monitor trop q6h overnight -Cardiology consult placed -Will hold patient's Eliquis and start standard weight base heparin drip WO bolus in case of heart cath tomorrow -AM CBC, CMP, Mag, PT/INR/aptt -Will make him NPO at midnight in case of cath tomorrow morning (2) Acute on chronic HFrEF (heart failure with reduced ejection fraction): Plan: -Last echo in 07/2022 showed a LVEF of 35-40% -Already good diuresis with 20mg IV lasix given in ER -Continue BID 20mg IV diuresis for now -Will repeat TTE tomorrow (3) Chest pain: Plan: -See FLORES (4) CAD (coronary atherosclerotic disease): Plan: -Conitnue aspirin (5) History of recurrent deep vein thrombosis (DVT): Plan: -Holding eliquis for now in case of heart cath tomorrow -Starting standard weight base heparin drip WO bolus to anticoagulate for now (6) Type 2 diabetes mellitus: Plan: -Hold metformin -Monitor BSG ACHS, goal is 110-140 -Will start with 5 units Lantus BID, CF 50 and CR of 15 -DM II and HH diet (7) Hypothyroidism: Plan: -Continue levothyroxine (8) Benign essential hypertension: Plan: -Stable -Continue metoprolol -Hold spironolactone for now while on IV diuretics (9) Asthma: Plan: -Stable on RA -No wheezing on exam -Continue home breathing treatments (10) NSTEMI (non-ST elevated myocardial infarction): Plan The patient was discussed with Dr. Kimball at the time of the admission History of Present Illness Chief Complaint: Referred by PCP Primary Care Provider: Janes Esquivel MD Anabel is an 82 year old male with a PMH significant for coronary artery disease s/p CABG 3 (SVG to PDA and OM occluded) at [facility] in 2014, ischemic cardiomyopathy, HFrEF LVEF of 35 to 40% as of 07/2022, S/P pacemaker defibrillator placement, paroxysmal atrial fibrillation on Eliquis, DMII, hypothyroidism, HTN, and asthma who presented to the [facility] ED on 03/15/23 at the recommendation of his PCP due to outpatient high sen trop level of 110 and concerns for CHF exacerbation. In the ED the patient's vitals were found to be stable. Labs were significant for a cr of 1.51 (baseline appears near 1.3), initial high sen trop of 110 with 2 hour repeat of 291, BNP of 1067 (no prior to compare), and Covid 19 negative. CXR was read as "No acute disease" but on my read it appears that he has mild BL interstitial pulmonary edema. ECG was without acute ST segment or T-wave changes. Prior to admission the patient was given 40 mg IV lasix. Per chart review the patient was seen by his PCP earlier today due to ongoing having increased shortness of breath, leg swelling, orthopnea and paroxysmal nocturnal dyspnea. His PCP obtained outpatient labs and initially instructed the patient to increased his dose of lasix from 20 mg PO prn to 40 mg PO daily. At the time of the exam the patient was sitting in bed in no acute distress with his sitting bedside, history was obtained from both. He states that he has been having progressive orthopnea, FLORES, LE swelling, and intermittent chest pain over the past 2 weeks. He used his prn 20 mg PO lasix intermittently throughout this time and it seemed to improve his lower extremity swelling, but he did not take the lasix daily. He has been waking up almost every night feeling SOB while lying flat, these symptoms are resolved when sitting in his recliner. He has experienced intermittent upper right and upper left chest discomfort which he describes as dull/pressure. These episodes occur both at rest and sometimes with exertion and can last for up to 1 hour. He did not use his prn nitroglycerin for this pain. He has been taking his BID eliqus and daily aspirin as prescribed without missed doses. He has noticed significant progression of his FLORES over the past two weeks. He is normally very active but has noticed significantly more SOB while doing typical house work or going up steps. He has not had any chest discomfort today and is currently feeling well at the time of the exam. When ask if his currently symptoms feel similar to his symptoms prior to his CABG X 3 in 2014 he replies "sort of". He did use his prn breathing treatments over the past 2 weeks which gave him minimal to no symptomatic relief. He is a full code and would want his to make medical decisions for him if he could not make them himself. Please refer to Dr. Kimball's attestation for any changes to the treatment plan Allergies Allergy/AdvReac Type Severity Reaction Status Date / Time No Known Drug Allergies Allergy Verified 03/15/23 07:51 Home Medications Medication Instructions Recorded Confirmed Type aspirin 81 mg tablet,delayed 81 mg PO DAILY #90 tabs 04/15/19 03/15/23 Rx release bvclrmmp-rbh-gtifg acid 0.4 1 tab PO DAILY #90 tabs 04/15/19 03/15/23 Rx mg-lycopene 300 mcg-lutein 250 mcg tablet (Centrum Silver) acetaminophen 325 mg tablet 650 mg PO Q6H PRN PAIN/FEVER 03/04/20 03/15/23 History amoxicillin 500 mg capsule 500 mg PO .COMPLEX 03/04/20 03/15/23 History fluticasone 113 mcg-salmeterol 14 1 inh inhalation BID PRN SOB 03/29/21 03/15/23 History mcg/actuation breath activated powdr furosemide 20 mg tablet 20 mg PO DAILY PRN edema, wt gain, 02/07/22 03/15/23 History shortness of breath apixaban 5 mg tablet (Eliquis) 5 mg PO BID #180 tabs 04/25/22 03/15/23 Rx sacubitril 97 mg-valsartan 103 mg 1 tab PO BID #180 tabs 04/25/22 03/15/23 Rx tablet (Entresto) metoprolol succinate 200 mg 200 mg PO DAILY #30 tabs 06/02/22 03/15/23 Rx tablet,extended release 24 hr albuterol sulfate 90 mcg/actuation 2 puff inhalation Q4H PRN 07/17/22 03/15/23 Rx aerosol inhaler shortness of breath or wheezing #18 grams spironolactone 25 mg tablet 12.5 mg PO DAILY #45 tabs 08/01/22 03/15/23 Rx nitroglycerin 0.4 mg sublingual 0.4 mg sublingual ONCE PRN chest 08/02/22 03/15/23 Rx tablet pain #25 tabs metformin 500 mg tablet 500 mg PO BID #180 tabs 10/04/22 03/15/23 Rx omeprazole 20 mg capsule,delayed 20 mg PO DAILY #90 caps 10/04/22 03/15/23 Rx release fexofenadine 180 mg tablet 180 mg PO DAILY #30 tabs 11/06/22 03/15/23 Rx fluticasone propionate 50 2 spray intranasal DAILY #16 grams 11/06/22 03/15/23 Rx mcg/actuation nasal spray,suspension (Flonase Allergy Relief) tramadol 50 mg tablet 50 mg PO Q8H PRN pain #90 tabs 11/20/22 03/15/23 Rx atorvastatin 40 mg tablet 40 mg PO DAILY #90 tabs 12/29/22 03/15/23 Rx levothyroxine 50 mcg tablet 50 mcg PO QAM #90 tabs 02/02/23 03/15/23 Rx Past Med/Surg History Medical History Acute on chronic diastolic CHF (congestive heart failure) Angina at rest Aortic valve disorder Atrial fibrillation Benign essential hypertension Bronchospasm CAD (coronary atherosclerotic disease) CAD in [place] artery Cardiomyopathy Cataract Cataract Chronic anticoagulation Chronic systolic CHF (congestive heart failure) Close exposure to 2018- Community acquired pneumonia Controlled type 2 diabetes mellitus Cough Dilated aortic root GERD without esophagitis Hip pain, right History of recurrent deep vein thrombosis (DVT) Hypercholesterolemia Hypothyroidism Ingrown toenail of left foot Knee pain, right Leg length difference, acquired Mass of lower lobe of left lung Narcotic drug use Osteoarthritis of right knee Presence of combination internal cardiac defibrillator (ICD) and pacemaker Medtronic 06/2020 Right leg DVT Tachyarrhythmia Travel-related illness Ventricular tachycardia Surgical History History of abdominal surgery A KID History of appendectomy History of cataract surgery BILATERAL History of hernia repair 2010? History of knee replacement LEFT History of left hip replacement S/P CABG x 3 S/P total knee arthroplasty 11/17/19 Dr. Austin Mathis Jr- R TK with quad tendon rupture Family History Father Alcoholism Denies family history of Ovarian cancer Prostate cancer Myocardial infarction Breast cancer Colorectal cancer Social History Smoking Status: Never smoker Second Hand Exposure: No; Hx Alcohol Use: No Hx Substance Use: No Preferred Language: American Communication Ability: Effective Visual Impairment: No Limitations Hearing Ability: Use of Hearing Aid Art Objects Salesperson Required: No Beliefs That Will Affect Care: None marital status: Current Living Situation: Spouse current occupational status: retired Other Information That Helps Us Care for You: No Feels Safe at Home: Yes Safety Concerns: Feels Safe At This Time Childhood Exposure to Second-Hand Smoke: Yes (father) Diet: low carbohydrate and low salt caffeine: Yes (soda 1-2/wk) during the past year weight has: remained stable Dental Care, Regularly: Yes Physical Activity Frequency: Daily Seatbelt Use: always Sunscreen Use: Yes (sometimes - at the beach) Do you think of yourself as: straight/heterosexual Assistive Devices: Cane, Glasses and Hearing Aid - Bilateral Physical Exam Physical Exam: Physical Exam: General: In no acute distress, stated age, well-nourished, good hygiene HEENT: Normocephalic, atraumatic, no scleral icterus, pupils around round, symmetrical, and reactive to light, moist mucus membranes, trachea midline, no thyromegaly Chest/Pulm: No reproducible chest pain on palpation, No respiratory distress, symmetrical chest expansion, clear breath sounds throughout Cardiac: RRR, no murmurs noted Abdomen: Negative for ascites and bruising, normoactive bowel sounds, soft, non-tender to palpation throughout Musculoskeletal: Symmetrical and without signs of acute trauma, upper and lower extremities with full ROM, no atrophy, spasticity, or flaccidity Extremities: Radial, dorsalis pedis, and posterior tibial pulses are intact and symmetrical, 2+ pitting edema noted in the BL LE's Skin: Warm, dry, no rashes , lesions, or scars noted Neuro: Alert and oriented to person, place, month, year, and president, no focal defects, no tremors noted Psych: No acute distress, calm and cooperative during the exam Results & Data Results & Data Vital Signs (Past 12 Hours) Vital Signs Temp Pulse Pulse Resp BP BP Pulse Ox 03/15/23 19:00 63 23 121/71 96 03/15/23 17:00 54 L 13 144/80 H 94 03/15/23 16:45 72 03/15/23 16:39 60 12 128/80 94 03/15/23 15:37 36.9 C 70 20 109/71 97 O2 Del Method 03/15/23 19:00 03/15/23 17:00 Room Air 03/15/23 16:45 03/15/23 16:39 Room Air 03/15/23 15:37 Room Air Laboratory Results Abnormal lab results 03/15/23 03/15/23 Range/Units 16:25 16:25 RBC 4.54 L (4.70-6.10) M/uL RDW Std Deviation 48.4 H (36.4-46.3) fL [place] # (Auto) 0.63 H (0.11-0.59) K/uL BUN 31 H (6-23) mg/dl Creatinine 1.51 H (0.6-1.4) mg/dl BUN/Creatinine Ratio 20.5 H (10-20) Troponin I High Sens 291.7 H* D (0-20) pg/ml Diagnostic Findings Chest X-Ray 03/15/23 16:44 XR chest 1V portable CLINICAL HISTORY: CHEST PAIN TECHNIQUE: Single frontal radiograph of the chest was obtained. Comparison: Comparison is made to chest radiograph 02/01/2017 FINDINGS: Median sternotomy wires are unchanged with numerous fractured wires. Pacemaker defibrillator is seen. Cardiomegaly is noted. The lungs are clear. No evidence of pleural effusion or pneumothorax. IMPRESSION: No acute chest disease. Cardiomegaly is noted. ACT 112: Negative or not required by law. Electronically signed by: Isma Sal M.D. 03/15/2023 4:53 PM ECG Additional Comments: Ventricular-paced rhythm with occasional Premature ventricular complexes Abnormal ECG No previous ECGs available Confirmed by Donny Vieyra ([id number]) on 03/15/2023 5:35:49 PM Code Status & VTE Plan Code Status Full code VTE Prophylaxis Plan VTE Prophylaxis will be ordered: Yes Supervising Physician Co-Signing Physician Notes I personally saw and examined the patient. I verified all singh points and agree with Isidoro Werner PA-C with the following exceptions and/or additions: 82 year old male presents to the ER on advice of his PCP due to shortness of breath and chest pain without outpatient high sensitivity troponin elevation. He denies any chest pain in the last 24 hours but has been having at rest and exertion chest pain over the last 2 weeks. Progressive leg swelling, generalized weakness and shortness of breath on exertion over the same time period. O/E A&Ox3, HS RRR, no murmurs, 2+ b/l LE edema, Chest bibasal crackles, Abdo SNT A/P Acute coronary syndrome - concerning history of unstable angina, now with escalating troponin (although no chest pain in last 24 hours) this is consistent with NSTEMI. Possible due to CHF alone however this doesn't adequately explain his chest pain. Already taken ASA, Metoprolol, atorvastatin and Eliquis. TTE. Will switch Eliquis to IV heparin to allow cardiac catheterization if recommended tomorrow. Acute on chronic heart failure with reduced ejection fraction - Lasix 20mg IV with good diuresis already, continue IV 20mg BID. Strict I&Os, daily weights. PG Care Time/CCT Total # of Minutes Spent Total Time Spent with Patient: Total time spent is greater than 50% in coordination of care (as documented) at patient's floor/unit and/or counseling patient: Coding [place] [address] INT INP/OBS CARE 3/75MIN Patient Type Established Medical Decision Making High Complexity Diagnoses FLORES (dyspnea on exertion) R06.09 Acute on chronic HFrEF (heart failure with reduced ejection fraction) I50.23 Chest pain R07.9 CAD (coronary atherosclerotic disease) I25.10 History of recurrent deep vein thrombosis (DVT) Z86.718 Type 2 diabetes mellitus E11.9 Hypothyroidism E03.9 Benign essential hypertension I10 Asthma J45.909 NSTEMI (non-ST elevated myocardial infarction) I21.4
[2023-03-15] MEDS ORDERED: GLUCOSE 40% GEL 15 GM TUBE PO PRN (20:19)
[2023-03-15] MEDS ORDERED: DEXTROSE 50% 50 ML SYRINGE IV PRN (20:19)
[2023-03-15] MEDS ORDERED: GLUCOSE 10 TAB/TUBE PO PRN (20:19)
[2023-03-15] MEDS ORDERED: GLUCAGON FOR INJ 1 MG VIAL SQ PRN (20:19)
[2023-03-15] MEDS ORDERED: CARBOHYDRATES FOR HYPOGLYCEMIA PO PRN (20:19)
[2023-03-15] MEDS ORDERED: Heparin IV Adult Wt-Based Standard *NO* Bolus Protocol IV STA (21:17)
[2023-03-15] MEDS ORDERED: ALBUTEROL HFA 8 GM INHALER INH PRN (21:18)
[2023-03-15] MEDS ORDERED: NON-FORMULARY MEDICATION (Fluticasone Propion-Salmeterol 113-14 mcg/actuation aerosol powd INH PRN (21:18)
[2023-03-15] MEDS ORDERED: traMADol HCL 50 MG TABLET PO PRN (21:18)
[2023-03-15] MEDS ORDERED: HEPARIN SODIUM/DEXTROSE 25,000 UNITS/500 ML BAG IV SCH (21:45)
[2023-03-15] MEDS: LANTUS PER UNIT CHARGE SQ SCH (22:10)
[2023-03-15] MEDS: INSULIN ASPART PER UNIT CHARGE SC SCH (22:11)
[2023-03-15] MEDS: VALSARTAN/SACUBITRIL 103/97MG TAB PO SCH (22:16)
[2023-03-16 04:54] LABS: Basophils # (auto) 0.03 K/uL (0-0.2); Basophils % (auto) 0.4 %; Eosinophils # (auto) 0.27 K/uL (0-0.50); Eosinophils % (auto) 3.8 %; Hemoglobin 13.5 g/dl (14.0-18.0); Immature Granulocytes # (auto) 0.02 K/uL (0.01-0.20); Immature Granulocytes % (auto) 0.3 %; Lymphocytes # (auto) 1.97 K/uL (1.2-3.4); Lymphocytes % (auto) 27.5 %; Mean Corpuscular Hemoglobin 32.6 pg (25.0-34.0); Mean Corpuscular Hgb Conc 33.8 g/dL (32.0-36.0); Mean Corpuscular Volume 96.6 fL (80.0-100.0); Mean Platelet Volume 10.2 fL (9.4-12.4); Monocytes # (auto) 0.67 K/uL (0.11-0.59); Monocytes % (auto) 9.4 %; Neutrophils % (auto) 58.6 %; Platelet Count 224 K/uL (130-400); RDW Coefficient of Variation 13.5 % (11.5-14.5); RDW Standard Deviation 48.4 fL (36.4-46.3); Red Blood Count 4.14 M/uL (4.70-6.10); White Blood Count 7.16 K/ul (4.8-10.8)
[2023-03-16 05:04] LABS: Albumin Globulin Ratio 1.4 (0.9-2); Albumin Level 3.6 gm/dl (3.4-5.0); BUN Creatinine Ratio 24.8 (10-20); Bilirubin,Total 0.7 mg/dl (0.2-1.0); Calcium 9.4 mg/dl (8.6-10.3); Creatinine Clr Calc Pharmacy 37.5 ml/min; Est GFR (African American) 47.5 ml/min; Globulin 2.5 gm/dl (2.5-4.0); Magnesium 1.8 mg/dl (1.7-2.4); Potassium 4.7 mmol/L (3.5-5.1); Total Protein 6.1 gm/dl (6.0-8.3)
[2023-03-16 05:27] LABS: INR 1.1 (0.9-1.1); Partial Thromboplastin Ratio 1.8; Prothrombin Time 12.2 Seconds (9.0-12.0)
[2023-03-16] MEDS: LEVOTHYROXINE SODIUM 50 MCG TABLET PO SCH (05:57)
[2023-03-16] MEDS ORDERED: PERFLUTREN LIPID MICROSPHERE (DEFINITY) IV ONE (07:09)
--- NOTE | 2023-03-16 07:31 | Hospitalist Progress Note ---
Date of Service March 16, 2023 Assessment & Plan (1) FLORES (dyspnea on exertion): Plan: - acute exacerbation of his HFrEF of 35-40%, but ACS cannot be ruled out at this time, h/o previous CABG -pacemaker/ICD interrogated due to possible pacing/ICD shocks causing his disc omfort -high sen trop 110, -> 291 --> 344 -->265 -S/P 20 mg IV lasix in the ED with good response, continue with 20 mg IV lasix BID -Cardiology consult placed -Will hold patient's Eliquis and start standard weight base heparin drip WO bolus for concern for nstemi will convert back to Eliquis in the evening of 03/16 - (2) Acute on chronic HFrEF (heart failure with reduced ejection fraction): Plan: -Last echo in 07/2022 showed a LVEF of 35-40% repeat echo in 6 to shows the same ejection fraction grade 2 diastolic dysfunction dilated ascending aorta 4.3 no new regional wall motion abnormalities -Already good diuresis with 20mg IV lasix given in ER -Continue BID 20mg IV diuresis for now -We will need to have aorta followed up as an outpatient (3) History of recurrent deep vein thrombosis (DVT): Plan: -Convert back to Eliquis therapy (4) Type 2 diabetes mellitus: Plan: -Hold metformin -Monitor BSG ACHS, goal is 110-140 -Will start with 5 units Lantus BID, CF 50 and CR of 15 -DM II and HH diet (5) Hypothyroidism: Plan: -Continue levothyroxine Admission and Anticipated Discharge Date Admission Date: March 15, 2023 Subjective Patient was feeling improved and marked diuresis cardiology feels his events may be related to volume overload and not significantly unstable angina no plans on cardiac intervention at this time Physical Exam Physical Exam: JVD is present card exam is regular there are no systolic murmurs lungs are with diminished breath sounds at the bases but no significant rales Results & Data Results & Data Vital Signs (Past 12 Hours) Vital Signs Temp Pulse Pulse Resp BP BP Pulse Ox 03/16/23 04:09 97.9 F 70 20 125/67 96 03/15/23 21:20 68 03/15/23 22:14 68 03/15/23 20:58 66 03/15/23 21:43 03/15/23 21:43 98.4 F 68 16 130/79 97 03/15/23 20:30 61 22 96 03/15/23 20:00 13 96 O2 Del Method 03/16/23 04:09 Room Air 03/15/23 21:20 03/15/23 22:14 03/15/23 20:58 03/15/23 21:43 Room Air 03/15/23 21:43 Room Air 03/15/23 20:30 03/15/23 20:00 Laboratory Results Reviewed CBC reviewed chemistry reviewed coagulation studies reviewed troponin trend PG Care Time/CCT Total # of Minutes Spent Total Time Spent with Patient: Total time spent is greater than 50% in coordination of care (as documented) at patient's floor/unit and/or counseling patient: Coding Level of Care Code 45230 SUB INP/OBS CARE 3/50MIN Diagnoses FLORES (dyspnea on exertion) R06.09 Acute on chronic HFrEF (heart failure with reduced ejection fraction) I50.23 History of recurrent deep vein thrombosis (DVT) Z86.718 Type 2 diabetes mellitus E11.9 Hypothyroidism E03.9
--- NOTE | 2023-03-16 08:33 | Electrocardiogram Report ---
Test Reason : Blood Pressure : / mmHG Vent. 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 rate has decreased BY 12 BPM Confirmed by Donny Vieyra ([id number]) on 03/16/2023 8:33:09 AM Referred By: Janes Esquivel Confirmed By:Donny Vieyra
[2023-03-16] MEDS: VALSARTAN/SACUBITRIL 103/97MG TAB PO SCH ×2 (09:19→21:23)
[2023-03-16] MEDS: FUROSEMIDE INJ 20 MG/2 ML VIAL IV SCH ×2 (09:20→17:41)
[2023-03-16] MEDS: ASPIRIN 81 MG ECTAB PO SCH (09:20)
[2023-03-16] MEDS: ATORVASTATIN 40 MG TAB PO SCH (09:20)
[2023-03-16] MEDS: METOPROLOL SUCC 50MG EXT REL TAB PO SCH (09:20)
[2023-03-16] MEDS: INSULIN ASPART PER UNIT CHARGE SC SCH ×4 (09:21→21:33)
--- NOTE | 2023-03-16 09:21 | XCELERA ---
[id number] \\[id number]
[2023-03-16] MEDS: PANTOprazole 40 MG TAB PO SCH (09:23)
[2023-03-16] MEDS: FAMOTIDINE 20 MG in SYRINGE 3 ML IV SCH (09:23)
[2023-03-16] MEDS: LANTUS PER UNIT CHARGE SQ SCH ×2 (10:23→21:33)
--- NOTE | 2023-03-16 12:46 | Cardiology Consultation ---
Date of Consultation March 16, 2023 Assessment & Plan (1) Acute on chronic HFrEF (heart failure with reduced ejection fraction): 2. Ischemic cardiomyopathyEF 30 to 35% ICD in place 3. Elevated troponin 4. Multivessel CAD post three-vessel CABGknown occluded vein grafts 5. Stage III CKD 6. Atrial fibrillation, history of VTEchronic anticoagulation 7. Type 2 diabetes Patient admitted with several weeks of increased lower extremity edema, orthopnea, fatigue and atypical right-sided chest pain. Found to be in acute heart failure with mildly elevated HS TropI. Patient's symptoms atypical and overall feel mild troponin elevation more likely secondary to acute heart failure rather than ACS event. No other clear precipitants for HF. Patient has responded well to IV diuretics and on exam/echocardiogram only minimal residual congestion. Going forward: Feel can defer cardiac catheterization at this timeunlikely to have new disease for which intervention would change prognosis. If recurrent chest pain as an outpatient could try increasing to antianginal Can stop heparin and start diet now Can transition Lasix to p.o. maintenance diuretic. Home on Lasix 40 mg daily Continue home HF regimen Toprol-XL, Entresto, spironolactone. Resume home apixaban this evening Has PCP follow-up next week and follow-up with Dr. Schmid scheduled for 04/03/2023 History of Present Illness Attending Physician: Jose Elias Fleming MD History of Present Illness Mr. Marmolejo is a very pleasant 82-year-old man with a history of multivessel CAD post three-vessel CABG, ischemic cardiomyopathy EF 35% post ICD, AF and history of VTE on chronic anticoagulation, type 2 diabetes admitted with acute heart failure and elevated troponin. Patient is followed by Dr. Schmid for his cardiac care. Also follows with CHF clinic. Last cardiac [place] 06/2020 at [facility] [place] to LAD patent, SVG to OM and SVG to PDA occluded. Ostial circumflex 60%, RCA diffuse moderate nonobstructive disease. Patient states that for the last 3 weeks or so has noticed increased bilateral lower extremity edema. Reports mild associated orthopnea and generalized fatigue. Initially attributed fatigue to deconditioning in the setting of decreased mobility from right hip/knee pain. At baseline very active, states was up until recently doing 80-100 push-ups every morning. Also over the last week or so has noted right sided chest discomfort which can occur anytime lasting minutes to half an hour. With chest pain no associated symptoms. Pain different than what he had thought to represent his prior [place]. Patient was seen by his PCP, Dr. Esquivel yesterday. Started on increased Lasix and had repeat labs. BNP elevated at 1000, outpatient HS TropI 100 and patient counseled to present to ED. ECG showed V paced rhythm, HS TropI arnoldo to 300 and downtrended. Received 20 mg IV Lasix x2. Repeat echo today shows now moderately dilated LV with stable to slightly reduced LV function. No new regional wall motion abnormalities. [place] remains dyskinetic. Today patient reports feeling well. Denies any chest pain, shortness of breath in bed. Reports lower extreme edema much improved with only mild residual ankle/foot swelling. Allergies Allergy/AdvReac Type Severity Reaction Status Date / Time No Known Drug Allergies Allergy Verified 03/15/23 07:51 Home Medications Medication Instructions Recorded Confirmed Type aspirin 81 mg tablet,delayed 81 mg PO DAILY #90 tabs 04/15/19 03/15/23 Rx release bcupaxjx-ryr-zuizm acid 0.4 1 tab PO DAILY #90 tabs 04/15/19 03/15/23 Rx mg-lycopene 300 mcg-lutein 250 mcg tablet (Centrum Silver) acetaminophen 325 mg tablet 650 mg PO Q6H PRN PAIN/FEVER 03/04/20 03/15/23 History amoxicillin 500 mg capsule 500 mg PO .COMPLEX 03/04/20 03/15/23 History fluticasone 113 mcg-salmeterol 14 1 inh inhalation BID PRN SOB 03/29/21 03/15/23 History mcg/actuation breath activated powdr furosemide 20 mg tablet 20 mg PO DAILY PRN edema, wt gain, 02/07/22 03/15/23 History shortness of breath apixaban 5 mg tablet (Eliquis) 5 mg PO BID #180 tabs 04/25/22 03/15/23 Rx metoprolol succinate 200 mg 200 mg PO DAILY #30 tabs 06/02/22 03/15/23 Rx tablet,extended release 24 hr albuterol sulfate 90 mcg/actuation 2 puff inhalation Q4H PRN 07/17/22 03/15/23 Rx aerosol inhaler shortness of breath or wheezing #18 grams spironolactone 25 mg tablet 12.5 mg PO DAILY #45 tabs 08/01/22 03/15/23 Rx nitroglycerin 0.4 mg sublingual 0.4 mg sublingual ONCE PRN chest 08/02/22 03/15/23 Rx tablet pain #25 tabs metformin 500 mg tablet 500 mg PO BID #180 tabs 10/04/22 03/15/23 Rx omeprazole 20 mg capsule,delayed 20 mg PO DAILY #90 caps 10/04/22 03/15/23 Rx release fexofenadine 180 mg tablet 180 mg PO DAILY #30 tabs 11/06/22 03/15/23 Rx fluticasone propionate 50 2 spray intranasal DAILY #16 grams 11/06/22 03/15/23 Rx mcg/actuation nasal spray,suspension (Flonase Allergy Relief) tramadol 50 mg tablet 50 mg PO Q8H PRN pain #90 tabs 11/20/22 03/15/23 Rx atorvastatin 40 mg tablet 40 mg PO DAILY #90 tabs 12/29/22 03/15/23 Rx levothyroxine 50 mcg tablet 50 mcg PO QAM #90 tabs 02/02/23 03/15/23 Rx sacubitril 97 mg-valsartan 103 mg 1 tab PO BID #180 tabs 03/16/23 Rx tablet (Entresto) Patient History Medical History Acute on chronic diastolic CHF (congestive heart failure) Angina at rest Aortic valve disorder Atrial fibrillation Benign essential hypertension Bronchospasm CAD (coronary atherosclerotic disease) CAD in [place] artery Cardiomyopathy Cataract Cataract Chronic anticoagulation Chronic systolic CHF (congestive heart failure) Close exposure to 2018- Community acquired pneumonia Controlled type 2 diabetes mellitus Cough Dilated aortic root GERD without esophagitis Hip pain, right History of recurrent deep vein thrombosis (DVT) Hypercholesterolemia Hypothyroidism Ingrown toenail of left foot Knee pain, right Leg length difference, acquired Mass of lower lobe of left lung Narcotic drug use Osteoarthritis of right knee Presence of combination internal cardiac defibrillator (ICD) and pacemaker Med[employer] 06/2020 Right leg DVT Tachyarrhythmia Travel-related illness Ventricular tachycardia Surgical History History of abdominal surgery A KID History of appendectomy History of cataract surgery BILATERAL History of hernia repair 2010? History of knee replacement LEFT History of left hip replacement S/P CABG x 3 S/P total knee arthroplasty 11/17/19 Dr. Austin Mathis Jr- R TK with quad tendon rupture Family History Father Alcoholism Denies family history of Ovarian cancer Prostate cancer Myocardial infarction Breast cancer Colorectal cancer Social History Smoking Status: Never smoker Second Hand Exposure: No; Hx Alcohol Use: No Hx Substance Use: No Preferred Language: Swedish Communication Ability: Effective Visual Impairment: No Limitations Hearing Ability: Use of Hearing Aid Systems Analyst Developer Required: No Beliefs That Will Affect Care: None marital status: Current Living Situation: Spouse current occupational status: retired Other Information That Helps Us Care for You: No Feels Safe at Home: Yes Safety Concerns: Feels Safe At This Time Childhood Exposure to Second-Hand Smoke: Yes (father) Diet: low carbohydrate and low salt caffeine: Yes (soda 1-2/wk) during the past year weight has: remained stable Dental Care, Regularly: Yes Physical Activity Frequency: Daily Seatbelt Use: always Sunscreen Use: Yes (sometimes - at the beach) Do you think of yourself as: straight/heterosexual Assistive Devices: Cane, Glasses and Hearing Aid - Bilateral Review of Systems 2 Review of Systems: All systems reviewed & are unremarkable except as noted in HPI & below Physical Exam Physical Exam: General: Comfortable HEENT: Sclerae anicteric Lungs: Clear to auscultation bilaterally, no crackles or wheezes Cardiac: Regular rate and rhythm, 2/6 systolic ejection murmur. No JVD Vascular: 2+ radial Abdomen: Soft, nontender Extremities: Well perfused, trace edema at the ankle right greater than left Neuro: Nonfocal Psych: Alert orient x3, normal affect and mood Results & Data Vital Signs (Past 12 Hours) Vital Signs Temp Pulse Pulse Resp BP Pulse Ox O2 Del Method 03/16/23 11:05 97.7 F 55 L 18 100/70 96 Room Air 03/16/23 09:26 113/70 03/16/23 08:49 71 03/16/23 07:23 97.7 F 60 18 96/61 L 96 Room Air 03/16/23 04:09 97.9 F 70 20 125/67 96 Room Air PG Care Time/CCT Total # of Minutes Spent Total Time Spent with Patient: Total time spent is greater than 50% in coordination of care (as documented) at patient's floor/unit and/or counseling patient: Coding Level of Care Code 55592 INT INP/OBS CARE 3/75MIN Diagnoses Acute on chronic HFrEF (heart failure with reduced ejection fraction) I50.23
[2023-03-16] MEDS: APIXABAN 2.5 MG TAB PO SCH (21:23)
[2023-03-17] MEDS: LEVOTHYROXINE SODIUM 50 MCG TABLET PO SCH (05:21)
[2023-03-17 07:22] LABS: Basophils # (auto) 0.02 K/uL (0-0.2); Basophils % (auto) 0.3 %; Eosinophils % (auto) 2.7 %; Hematocrit (blood only) 42.3 % (42.0-52.0); Hemoglobin 14.2 g/dl (14.0-18.0); Immature Granulocytes # (auto) 0.02 K/uL (0.01-0.20); Immature Granulocytes % (auto) 0.3 %; Lymphocytes # (auto) 2.39 K/uL (1.2-3.4); Lymphocytes % (auto) 32.6 %; Mean Corpuscular Hemoglobin 32.3 pg (25.0-34.0); Mean Corpuscular Hgb Conc 33.6 g/dL (32.0-36.0); Mean Corpuscular Volume 96.1 fL (80.0-100.0); Mean Platelet Volume 9.8 fL (9.4-12.4); Monocytes % (auto) 8.2 %; Neutrophils % (auto) 55.9 %; Platelet Count 220 K/uL (130-400); RDW Coefficient of Variation 13.2 % (11.5-14.5); RDW Standard Deviation 47.2 fL (36.4-46.3); White Blood Count 7.33 K/ul (4.8-10.8)
[2023-03-17 07:34] LABS: Albumin Globulin Ratio 1.3 (0.9-2); Albumin Level 3.5 gm/dl (3.4-5.0); Bilirubin,Total 0.9 mg/dl (0.2-1.0); Calcium 9.6 mg/dl (8.6-10.3); Creatinine Clr Calc Pharmacy 34.3 ml/min; Est GFR (African American) 42.6 ml/min; Est GFR (Non-African American) 36.7 ml/min; Globulin 2.7 gm/dl (2.5-4.0); Magnesium 1.8 mg/dl (1.7-2.4); Potassium 4.6 mmol/L (3.5-5.1); Total Protein 6.2 gm/dl (6.0-8.3)
[2023-03-17 07:44] LABS: INR 1.1 (0.9-1.1); Prothrombin Time 12.4 Seconds (9.0-12.0)
--- NOTE | 2023-03-17 08:30 | Hospitalist Progress Note ---
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 Westfall This is an 82-year-old male that was admitted on 03/15/2023 for dyspnea with exertion. Patient has significant comorbidities including coronary artery disease s/p CABG 3 (SVG to PDA and OM occluded) at [facility] in 2014, ischemic cardiomyopathy, HFrEF LVEF of 35 to 40% as of 07/2022, S/P pacemaker defibrillator placement, paroxysmal atrial fibrillation on Eliquis, DMII, hypothyroidism, HTN, and asthma who presented to the [facility] ED on 03/15/23 at the recommendation of his PCP due to outpatient high sen trop level of 110 and concerns for CHF exacerbation. Patient has chronic lower extremity edema. He had a mild increase in troponin which was felt secondary to be acute heart failure. Cardiology was consulted and at this time we will defer on cardiac catheterization. They also recommended stopping heparin infusion. Patient is chronically anticoagulated and was recommended that the apixaban be restarted. Patient also to start home regimen of Toprol-XL, Entresto, and spironolactone with home doses. Patient continued to have JVD yesterday. Continues with diuretic therapy. He is currently -3.5 L since admission. Review of Systems Review of Systems: A total of 10 systems was reviewed and is negative other than as listed in the HPI Physical Exam Physical Exam: GENERAL : No acute distress EYES: No icterus, gaze conjugate NOSE: No evidence of epistaxis MOUTH: No lesions or candidiasis NECK: Supple LUNGS: CTA B/L, no wheezes, rales or rhonchi HEART: Regular, rate controlled ABDOMEN: Soft, NT, ND, BS Present EXTREMITIES: No LE edema, pedal pulses intact NEURO: A&OX3 Results & Data Results & Data Vital Signs (Past 12 Hours) Vital Signs Temp Pulse Pulse Resp BP BP Pulse Ox 03/17/23 07:14 36.5 C 61 16 101/64 98 03/17/23 07:57 66 03/17/23 03:12 36.3 C L 73 16 125/84 98 03/16/23 22:03 68 03/16/23 23:35 36.6 C 66 20 98/60 L 96 03/16/23 20:26 O2 Del Method 03/17/23 07:14 Room Air 03/17/23 07:57 03/17/23 03:12 Room Air 03/16/23 22:03 03/16/23 23:35 Room Air 03/16/23 20:26 Room Air Critical Care Results & Data Vital Signs (Past 12 Hours) Vital Signs Temp Pulse Pulse Resp BP BP Pulse Ox 03/17/23 07:14 36.5 C 61 16 101/64 98 03/17/23 07:57 66 03/17/23 03:12 36.3 C L 73 16 125/84 98 03/16/23 22:03 68 03/16/23 23:35 36.6 C 66 20 98/60 L 96 O2 Del Method 03/17/23 07:14 Room Air 03/17/23 07:57 03/17/23 03:12 Room Air 03/16/23 22:03 03/16/23 23:35 Room Air Lab & Micro Results (Past 24 Hours) RBC 4.40 M/uL (4.70-6.10) L 03/17/23 WBC 7.33 K/ul (4.8-10.8) 03/17/23 Hgb 14.2 g/dl (14.0-18.0) 03/17/23 Hct 42.3 % (42.0-52.0) 03/17/23 MCV 96.1 fL (80.0-100.0) 03/17/23 MCH 32.3 pg (25.0-34.0) 03/17/23 MCHC 33.6 g/dL (32.0-36.0) 03/17/23 RDW Standard Deviation 47.2 fL (36.4-46.3) H 03/17/23 RDW Coefficient of Variation 13.2 % (11.5-14.5) 03/17/23 Plt Count 220 K/uL (130-400) 03/17/23 MPV 9.8 fL (9.4-12.4) 03/17/23 Neutrophils (%) (Auto) 55.9 % 03/17/23 Lymphocytes (%) (Auto) 32.6 % 03/17/23 Monocytes # (Auto) 0.60 K/uL (0.11-0.59) H 03/17/23 Eosinophils # (Auto) 0.20 K/uL (0-0.50) 03/17/23 Immature Granulocyte % (Auto) 0.3 % 03/17/23 Neutrophils # (Auto) 4.10 K/uL (1.40-6.50) 03/17/23 Lymphocytes # (Auto) 2.39 K/uL (1.2-3.4) 03/17/23 Monocytes # (Auto) 0.60 K/uL (0.11-0.59) H 03/17/23 Eosinophils # (Auto) 0.20 K/uL (0-0.50) 03/17/23 Basophils # (Auto) 0.02 K/uL (0-0.2) 03/17/23 Immature Granulocyte # (Auto) 0.02 K/uL (0.01-0.20) 3 Na 141 mmol/L (136-145) 03/17/23 K 4.6 mmol/L (3.5-5.1) 03/17/23 Cl 103 mmol/L (98-107) 03/17/23 CO2 32 mmol/L (21-32) 03/17/23 Anion Gap 6 (3-11) 03/17/23 BUN 43 mg/dl (6-23) H 03/17/23 Creatinine 1.72 mg/dl (0.6-1.4) H 03/17/23 Estimated GFR ( Amer) 42.6 ml/min 03/17/23 Estimated GFR (Non-Af Amer) 36.7 ml/min 03/17/23 BUN/Creatinine Ratio 25.0 (10-20) H 03/17/23 Glu 120 mg/dl (70-99(Fasting)) H 03/17/23 Ca 9.6 mg/dl (8.6-10.3) 03/17/23 Total Bilirubin 0.9 mg/dl (0.2-1.0) 03/17/23 AST 17 U/L (13-39) 03/17/23 ALT 13 U/L (7-52) 03/17/23 Alkaline Phosphatase 68 U/L (34-104) 03/17/23 TP 6.2 gm/dl (6.0-8.3) 03/17/23 Albumin 3.5 gm/dl (3.4-5.0) 03/17/23 Globulin 2.7 gm/dl (2.5-4.0) 03/17/23 Albumin/Globulin Ratio 1.3 (0.9-2) 03/17/23 Mg 1.8 mg/dl (1.7-2.4) 03/17/23 06:53 Calcium Level 9.6 mg/dl (8.6-10.3) 03/17/23 06:53 Prothromb Time International Ratio 1.1 (0.9-1.1) 03/17/23 06:5 3 I & O Totals 24 Hours 03/16/23 03/17/23 03/18/23 06:59 06:59 06:59 Intake Total 364.2 / 364.2 240.3 / 240.3 Output Total 1000 / 1000 3175 / 3175 Balance -635.8 / -635.8 -2934.7 / -2934.7 Cumulative 03/15/23 15:30 thru 03/17/23 06:11 Intake Total 604.5 Output Total 4175 Balance -3570.5 RT Ventilator Mngmt (Last Documented) Ventilator Ordered Settings Respiratory Rate 16 03/17/23 07:14 Ventilator - PT Measurements Respiratory Rate 16 PG Care Time/CCT Total # of Minutes Spent Total Time Spent with Patient: Total time spent is greater than 50% in coordination of care (as documented) at patient's floor/unit and/or counseling patient: Coding Diagnoses NSTEMI (non-ST elevated myocardial infarction) I21.4 Acute on chronic HFrEF (heart failure with reduced ejection fraction) I50.23 Elevated troponin R77.8 CKD (chronic kidney disease) N18.9 FLORES (dyspnea on exertion) R06.09 CAD (coronary atherosclerotic disease) I25.10 History of recurrent deep vein thrombosis (DVT) Z86.718 Mass of lower lobe of left lung R91.8 Type 2 diabetes mellitus E11.9 Atrial fibrillation I48.91 GERD without esophagitis K21.9 Asthma with COPD J44.9
[2023-03-17] MEDS: INSULIN ASPART PER UNIT CHARGE SC SCH ×3 (08:40→16:51)
[2023-03-17] MEDS: FUROSEMIDE INJ 20 MG/2 ML VIAL IV SCH ×2 (09:33→16:54)
[2023-03-17] MEDS: PANTOprazole 40 MG TAB PO SCH (09:34)
[2023-03-17] MEDS: VALSARTAN/SACUBITRIL 103/97MG TAB PO SCH (09:34)
[2023-03-17] MEDS: METOPROLOL SUCC 50MG EXT REL TAB PO SCH (09:34)
[2023-03-17] MEDS: ASPIRIN 81 MG ECTAB PO SCH (09:34)
[2023-03-17] MEDS: ATORVASTATIN 40 MG TAB PO SCH (09:34)
[2023-03-17] MEDS: APIXABAN 2.5 MG TAB PO SCH (09:35)
[2023-03-17] MEDS: LANTUS PER UNIT CHARGE SQ SCH (10:14)
[2023-03-17] MEDS: FAMOTIDINE 20 MG in SYRINGE 3 ML IV SCH (10:40)
[2023-03-17] MEDS ORDERED: ACETAMINOPHEN 325 MG TAB PO PRN (13:12)
--- NOTE | 2023-03-17 18:04 | Discharge Summary ---
Date of Service March 17, 2023 Admission HPI Per Admitting Provider Anabel is an 82 year old male with a PMH significant for coronary artery disease s/p CABG 3 (SVG to PDA and OM occluded) at [facility] in 2014, ischemic cardiomyopathy, HFrEF LVEF of 35 to 40% as of 07/2022, S/P pacemaker defibrillator placement, paroxysmal atrial fibrillation on Eliquis, DMII, hypothyroidism, HTN, and asthma who presented to the [facility] ED on 03/15/23 at the recommendation of his PCP due to outpatient high sen trop level of 110 and concerns for CHF exacerbation. In the ED the patient's vitals were found to be stable. Labs were significant for a cr of 1.51 (baseline appears near 1.3), initial high sen trop of 110 with 2 hour repeat of 291, BNP of 1067 (no prior to compare), and Covid 19 negative. CXR was read as "No acute disease" but on my read it appears that he has mild BL interstitial pulmonary edema. ECG was without acute ST segment or T-wave changes. Prior to admission the patient was given 40 mg IV lasix. Per chart review the patient was seen by his PCP earlier today due to ongoing having increased shortness of breath, leg swelling, orthopnea and paroxysmal nocturnal dyspnea. His PCP obtained outpatient labs and initially instructed the patient to increased his dose of lasix from 20 mg PO prn to 40 mg PO daily. At the time of the exam the patient was sitting in bed in no acute distress with his sitting bedside, history was obtained from both. He states that he has been having progressive orthopnea, FLORES, LE swelling, and intermittent chest pain over the past 2 weeks. He used his prn 20 mg PO lasix intermittently throughout this time and it seemed to improve his lower extremity swelling, but he did not take the lasix daily. He has been waking up almost every night feeling SOB while lying flat, these symptoms are resolved when sitting in his recliner. He has experienced intermittent upper right and upper left chest discomfort which he describes as dull/pressure. These episodes occur both at rest and sometimes with exertion and can last for up to 1 hour. He did not use his prn nitroglycerin for this pain. He has been taking his BID eliqus and daily aspirin as prescribed without missed doses. He has noticed significant progression of his FLORES over the past two weeks. He is normally very active but has noticed significantly more SOB while doing typical house work or going up steps. He has not had any chest discomfort today and is currently feeling well at the time of the exam. When ask if his currently symptoms feel similar to his symptoms prior to his CABG X 3 in 2014 he replies "sort of". He did use his prn breathing treatments over the past 2 weeks which gave him minimal to no symptomatic relief. He is a full code and would want his to make medical decisions for him if he could not make them himself. Please refer to Dr. Kimball's attestation for any changes to the treatment plan Discharge Data Allergies Allergy/AdvReac Type Severity Reaction Status Date / Time No Known Drug Allergies Allergy Verified 03/15/23 07:51 Consultations 03/15/23 17:57 ED Decision to Admit Stat 03/16/23 07:00 Consult Cardiology Routine Discharge Plan Discharge Items Reason For Visit: SOB, SWELLING Discharge Diagnosis: Heart failure, SOB Activity: Resume your previous activity Lifting: Gradually increase as tolerated Bathing: No limitations Sexual Activity: Wait until after follow-up appointment Exercise/Sports: Gradually increase as tolerated Weightbearing: Full weightbearing Non-emergency contact: Primary Care Provider and Pomology Teacher Call non-emergency contact if: you have any medication questions and your symptoms worsen Follow-up/Referrals: Janes Esquivel MD [Primary Care Provider] - Roxane Pardo PA-C [Physician Tax Services Specialist] - 03/22/23 3:00 pm Diet: Carb Consistent or DM2 and Heart Healthy Addtl Attending Provider Instructions: He presented with shortness of breath was was probably multifactorial to fluid overload from your congestive heart failure and demand on your heart. At this time you were seen by cardiology and it was recommended that we not undergo cardiac catheterization right now. You have an appointment scheduled Roxane Pardo PA-C with the heart failure clinic. You should keep all cardiac appointments. It is recommended that you continue to weigh yourself daily at the same time every day and keep a log that you could present to the heart failure clinic at each appointment. If you have further shortness of breath or chest pain please report to the emergency department for further evaluation and work-up At this time, no medication changes were made from your regular routine at home. You should continue all medications as prescribed until you are seen by the heart failure clinic. You should avoid any strenuous activity until seen by cardiology in the outpatient office. This includes heavy lifting, yard work, sexual activity, or other heart straining activities. You should weigh yourself each morning. If your weight is up 2 pounds, takes 20mg of Furosemide (Lasix). If it is up two days in a row, do not wait for your next cardiology appointment, call the heart failure clinic. If you have increased shortness of breath or increased c hest pain and can not get in touch with the cardiology office, go to the nearest emergency room. Pending Studies at Discharge: Yes Studies:: p-BNP Stand-Alone Forms: My [facility] Medications and DC Order Prescriptions: Continued metoprolol succinate 200 mg tablet extended release 24 hr 200 mg PO DAILY Qty: 30 0RF albuterol sulfate 90 mcg/actuation HFA aerosol inhaler 2 puff inhalation Q4H PRN (Reason: shortness of breath or wheezing) Qty: 18 3RF metformin 500 mg tablet 500 mg PO BID Qty: 180 3RF omeprazole 20 mg capsule,delayed release(DR/EC) 20 mg PO DAILY Qty: 90 3RF atorvastatin 40 mg tablet 40 mg PO DAILY Qty: 90 3RF levothyroxine 50 mcg tablet 50 mcg PO QAM Qty: 90 3RF Rx Instructions: Take 30 minutes prior to other medication and food. Entresto 97-103 mg tablet 1 tab PO BID Qty: 180 3RF spironolactone 25 mg tablet 12.5 mg PO DAILY Qty: 45 3RF nitroglycerin 0.4 mg tablet, sublingual 0.4 mg SL ONCE PRN (Reason: chest pain) Qty: 25 3RF acetaminophen 325 mg tablet 650 mg PO Q6H PRN (Reason: PAIN/FEVER) amoxicillin 500 mg capsule 500 mg PO .COMPLEX Rx Instructions: 500 mg PO prior to dental work ; furosemide 20 mg tablet 20 mg PO DAILY PRN (Reason: edema, wt gain, shortness of breath) Eliquis 5 mg tablet 5 mg PO BID Qty: 180 3RF fexofenadine 180 mg tablet 180 mg PO DAILY Qty: 30 0RF fluticasone propionate [Flonase Allergy Relief] 50 mcg/actuation spray,suspension 2 spray intranasal DAILY Qty: 16 0RF Rx Instructions: administer into each nostril tramadol 50 mg tablet 50 mg PO Q8H PRN (Reason: pain) Qty: 90 0RF fluticasone propion-salmeterol 113-14 mcg/actuation aerosol powdr breath activated 1 inh inhalation BID PRN (Reason: SOB) Rx Instructions: Mouth after usage aspirin 81 mg tablet,delayed release (DR/EC) 81 mg PO DAILY Qty: 90 3RF Centrum Silver 0.4-300-250 mg-mcg-mcg tablet 1 tab PO DAILY Qty: 90 3RF Discharge Orders: Discharge Order- CHF (Routine); Ordered 03/17/23 Ordered By: Janes Lee Admission Data Admit Date/Time: 03/15/23 19:55 Attending Provider: Man Westfall Admit Provider: Tristen Kimball Primary Care Provider: Janes Esquivel Other Providers: Tristen Kimball ; Krishan Palacios Coding Diagnoses
== END 2023-03-17 18:45 | disposition home or self-care (01) | DRG 291 ==
LOC: ED 15:30 → SUATTDRO 19:55 → 2W 19:55